=== PATIENT | female | born 1945 | race Caucasian/White ===

== ENCOUNTER 2017-07-12 08:38 | Inpatient (IN) | payer MEDICARE ==
--- NOTE | 2017-07-06 18:49 | HP ---
HISTORY AND PHYSICAL: DATE OF ADMISSION/SURGERY: 07/12/17 DATE OF OFFICE VISIT: 07/06/17 SURGEON: Vivienne Resendez MD * (DICTATED BY LISA RODRIGUEZ) PROCEDURE: Right total hip arthroplasty. CHIEF COMPLAINT: Right hip pain. HISTORY OF PRESENT ILLNESS: Ms. Pinedo is a 71-year-old female with complaints of right hip pain secondary to end-stage osteoarthritis. She has failed conservative management and has elected to proceed with a right total hip arthroplasty, which is scheduled for 07/12/[address] Resendez. PAST MEDICAL HISTORY: High cholesterol, depression, GERD, urinary incontinence , and melanoma. PAST SURGICAL HISTORY: Hysterectomy, laparoscopy. CURRENT MEDICATIONS: 1. Vitamin D. 2. Sertraline. ALLERGIES: To PENICILLIN. FAMILY HISTORY: Heart disease, hypertension, breast cancer. SOCIAL HISTORY: She is a 71-year-old female, lives with her . 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 She does not smoke or use drugs. Uses occasional alcohol. REVIEW OF SYSTEMS: A complete 14-point review of systems was reviewed with the patient, was positive for GERD. She denies a history of DVT, PE, anesthesia problems. PHYSICAL EXAMINATION GENERAL: She is well developed, well nourished, in no acute distress. VITAL SIGNS: She stands 5 feet 5 inches tall, weighs 160 pounds. Her blood pressure 124/68, heart rate is 72. HEENT: Normocephalic, atraumatic. NECK: Supple. No palpable lymph nodes. PULMONARY: Lungs are clear to auscultation bilaterally. CARDIO: Regular rate and rhythm. Strong S1, S2. ABDOMEN: Soft, nontender, nondistended. NEUROLOGICAL: She is alert and oriented x3. Cranial nerves II through XII are intact. MUSCULOSKELETAL: Right lower extremity, the skin is intact. There are no open wounds or abrasions. She has decreased internal and external rotation of her right hip. 2+ dorsalis pedis pulses. Her lower extremity muscle group strengths are intact at 5/5 and she has intact sensation. ASSESSMENT AND PLAN: Ms. Pinedo is a 71-year-old female with complaints of right hip pain secondary to end-stage osteoarthritis. She has failed conservative management and has elected to proceed with a right total hip arthroplasty, which is scheduled for 07/12/[address] Resendez has discussed the risks and benefits of surgery at today's visit, and all of her questions were answered. Coumadin, Percocet, and Colace were sent to her pharmacy for postoperative pain control and DVT prophylaxis. She will follow up with Dr. Resendez in 2 weeks after the surgery. LISA RODRIGUEZ [id number]/[facility] #: [id number] SILVANO
[~2017-07-12 08:38] MED LIST: Buffered Lidocaine 0.9% SYRIN* 5 ML/SYR SYRINGE INTRADERM ONE; Dexamethasone IV* 4 MG/ML 1 ML (4 MG) IV SLOW PU ONE; Famotidine IV* 10 MG/ML 2 ML (20 mg) IV ONE; Scopolamine 1.5 mg* PATCH TRANSDERM ONE
[2017-07-12] MEDS ORDERED: Dexamethasone IV* 4 MG/ML 1 ML (4 MG) ONE (08:49)
[2017-07-12] MEDS ORDERED: Famotidine IV* 10 MG/ML 2 ML (20 mg) ONE (08:49)
[2017-07-12] MEDS ORDERED: Buffered Lidocaine 0.9% SYRIN* 5 ML/SYR SYRINGE ONE (08:50)
[2017-07-12] MEDS ORDERED: Scopolamine 1.5 mg* PATCH ONE (08:50)
[2017-07-12] MEDS ORDERED: Clindamycin 900 MG IVPREMIX(* 900 MG/50 ML SDV IV ONE (08:50)
[2017-07-12] MEDS ORDERED: fentaNYL* 50 MCG/ML 2 ML VIAL (100 MCG VIAL) ONE (11:00)
[2017-07-12] MEDS ORDERED: Midazolam* 1 MG/ML 5 ML VIAL (5 MG) ONE (11:00)
[2017-07-12] MEDS ORDERED: Bupivacaine 0.5% SDV PF* 30 ML VIAL ONE (11:06)
[2017-07-12] MEDS ORDERED: Lidocaine 2% PF * 5 ML VIAL ONE (11:06)
[2017-07-12] MEDS ORDERED: Propofol* 10 MG/ML 20 ML BTL IV PUSH ONE ×2 (11:06→13:24)
[2017-07-12] MEDS ORDERED: fentaNYL* 50 MCG/ML 2 ML VIAL (100 MCG VIAL) IV PRN (12:24)
[2017-07-12] MEDS ORDERED: PROCHLORPERAZINE INJ 5 MG/ML 2 ML VIAL IV PRN ×2 (12:24→14:15)
[2017-07-12] MEDS ORDERED: oxyCODONE TAB* 5 MG TAB PO PRN ×3 (12:24→14:22)
[2017-07-12] MEDS ORDERED: Acetaminophen IV 1GM/100ML * 1,000 MG/100 ML VIAL IVPB ONE (12:24)
[2017-07-12] MEDS ORDERED: EPHEDrine (Pressors)* 50 MG/ML VIAL IV PUSH PRN (12:25)
[2017-07-12] MEDS ORDERED: Ondansetron INJ* 2 MG/ML VIAL IV PRN ×2 (12:25→14:15)
[2017-07-12] MEDS ORDERED: Naloxone* 0.4 MG/ML 1 ML VIAL IV PRN ×2 (12:25→14:15)
[2017-07-12] MEDS ORDERED: EPHEDrine (Pressors)* 50 MG/ML VIAL ONE (12:27)
[2017-07-12] MEDS ORDERED: Acetaminophen TAB* 325 MG PO SCH ×2 (13:00→15:00)
[2017-07-12] MEDS ORDERED: OBEPIDURAL* 250 ML EPIDURAL SCH (13:00)
--- NOTE | 2017-07-12 13:15 | RAD ---
INDICATION: Total right hip replacement surgery. COMPARISON: Comparison is made with a prior x-ray study of the right hip from June 24, 2017. TECHNIQUE: An AP view of the pelvis was obtained in the operating room. FINDINGS: The patient is undergoing a total right hip replacement surgery. The acetabular prostheses is in place. There is also femoral prostheses template in place. IMPRESSION: INTRAOPERATIVE CONTROL FILMS.
[2017-07-12] MEDS ORDERED: Morphine PF AMP (0.5MG/ML)* 5 MG/10 ML AMP ONE (13:59)
[2017-07-12] MEDS ORDERED: diPHENhydraMINE IV* 50 MG/ML 1 ml VIAL (BENADRYL) IV PRN (14:01)
[2017-07-12] MEDS ORDERED: Polyethylene Glycol 3350* 17 GM PACKET PO PRN (14:01)
[2017-07-12] MEDS ORDERED: Bisacodyl SUPP* 10 MG SUPP PR PRN (14:01)
[2017-07-12] MEDS ORDERED: Cetirizine* 10 MG TAB PO PRN (14:09)
[2017-07-12] MEDS ORDERED: Ondansetron INJ* 2 MG/ML VIAL ONE (14:14)
[2017-07-12] MEDS ORDERED: Acetaminophen IV 1GM/100ML * 100 ML ONE (14:21)
--- NOTE | 2017-07-12 15:13 | RAD ---
HISTORY: Status post right hip arthroplasty COMPARISONS: July 12, 2017 VIEWS: 3, Frontal view of the pelvis with frontal and crosstable lateral views of the right hip FINDINGS: BONE DENSITY: Normal. BONES: The patient is status post right hip arthroplasty. There is no hardware failure or osteolysis. JOINTS: The patient is status post right hip arthroplasty. There is osteoarthritis of the left hip. ALIGNMENT: There is no dislocation. SOFT TISSUES: Unremarkable. OTHER FINDINGS: None. IMPRESSION: STATUS POST RIGHT HIP ARTHROPLASTY
[2017-07-12] MEDS ORDERED: Warfarin TAB(*) 6 MG PO ONE (17:00)
[2017-07-12] MEDS: Acetaminophen TAB* 325 MG PO SCH (20:51)
[2017-07-12] MEDS: Docusate CAP* 100 MG PO SCH (20:51)
[2017-07-12] MEDS: Clindamycin 600 MG IVPREMIX(* 600 MG/50 ML SDV IV SCH (20:52)
[2017-07-12] MEDS ORDERED: Nalbuphine* 20 MG/ML 1 ML VIAL IV PRN (23:30)
[2017-07-12] MEDS ORDERED: Nalbuphine* 20 MG/ML 1 ML VIAL ONE (23:35)
[2017-07-13] MEDS: Clindamycin 600 MG IVPREMIX(* 600 MG/50 ML SDV IV SCH ×2 (03:22→12:09)
[2017-07-13 05:56] LABS: Hematocrit 30 % (35-47); Hemoglobin 10.3 g/dl (12.0-16.0)
[2017-07-13] MEDS ORDERED: Ondansetron TAB* 4 MG PO PRN (06:00)
[2017-07-13] MEDS ORDERED: HYDROmorphone INJ* 2 MG/ML CARPUJECT SYRINGE IV SLOW PU PRN (06:00)
[2017-07-13] MEDS ORDERED: oxyCODONE/Acetamin 5/325 MG* TAB PO PRN (06:00)
[2017-07-13] MEDS ORDERED: oxyCODONE TAB* 5 MG TAB PO PRN (06:00)
[2017-07-13] MEDS: Acetaminophen TAB* 325 MG PO SCH ×2 (06:05→12:14)
[2017-07-13 06:12] LABS: Potassium 4.6 mmol/L (3.5-5.0)
[2017-07-13 06:13] LABS: BUN/Creatinine Ratio 16.9 (8-20); Calcium 8.5 mg/dL (8.6-10.3); EGFR African American 87.2 (>60); EGFR Non-African American 67.8 (>60)
[2017-07-13] MEDS: Docusate CAP* 100 MG PO SCH ×2 (07:57→19:17)
[2017-07-13] MEDS: Sertraline* 50 MG TAB PO SCH (07:57)
--- NOTE | 2017-07-13 08:43 | OP ---
DATE OF OPERATION: 07/12/17 - ROOM #350 DATE OF : 45 ATTENDING SURGEON: Vivienne Resendez MD PASTER OPERATOR: LISA Chappell. Ms. Cordoba did help throughout the procedure with preparation of the leg wound, retraction, manipulation of the hip, and wound closure. ANESTHESIOLOGIST: Dr. Faby Murphy. ANESTHESIA TYPE: Spinal epidural. PRE-OP DIAGNOSIS: Severe end-stage degenerative osteoarthritis of the right hip joint. POST-OP DIAGNOSIS: Severe end-stage degenerative osteoarthritis of the right hip joint. OPERATIVE PROCEDURE: Right total hip arthroplasty. HARDWARE USED: This is uncemented Logan total hip arthroplasty hardware. For the cup, a Trident hemispherical acetabular shell 52E, 20-mm cancellous bone screw, an MDM cementless liner 42E. For the femur, an Accolade TMZF size 2.5 with a 132- degree neck angle. For the head, a Biolox delta ceramic V40 femoral head 28 -4. For the insert, a worship MDM 28/48/42E insert. COMPLICATIONS: None. ESTIMATED BLOOD LOSS: 300 cc. SPECIMENS: Femoral head and acetabular reaming sent to pathology. BRIEF HISTORY/INDICATION: Ms. Pinedo is a 71-year-old female with acute onset of right hip pain. She had some intermittent pain over the years, but in the last 3 months has had severe pain in the right hip. Radiographs confirmed advanced arthritis in that hip joint. She failed conservative treatment with anti- inflammatories, pain medications, physical therapy and activity modification. She elected to undergo right total hip arthroplasty due to continued pain and decreased quality of life. Informed consent was obtained from the patient. She understood the risks of the procedure included but were not limited to bleeding, infection, damage to nearby structures, continued pain , need for further surgery, intraoperative fracture, nerve palsy, hardware failure or loosening, dislocation, leg length discrepancy, stroke, heart attack , blood clot, and . She wished to proceed. INTRAOPERATIVE FINDINGS: Intraoperatively, the patient was noted to have full- thickness loss of cartilage along the femoral head and acetabulum. DESCRIPTION OF PROCEDURE: Ms. Pinedo was identified in the pre- anesthesia unit. Her right lower extremity was marked as the correct operative side. Informed consent was signed and placed in the chart. The patient was taken to the operating room and placed under spinal epidural anesthesia. Steiner catheter was placed.. The patient was placed in the left lateral decubitus position on the pegboard. All bony prominences were well padded. Right lower extremity was prepped and draped in the usual sterile fashion. Preop time-out was made to correctly identify the patient side and site. Appropriate perioperative antibiotics were given within 1 hour of incision. A 12-cm posterior hip incision was made with a #10 blade and carried down to the lateral fascial layer. A new 10 blade was used to make an incision in the lateral fascial layer in line with the skin incision. Charnley retractor was placed. The piriformis and conjoined tendons were identified and elevated off the posterolateral femur using electrocautery. These were tagged with #5 Ethibonds. Electrocautery was then used to make a standard posterolateral capsular flap which was also tagged with #5 Ethibonds. The hip was carefully dislocated. Lesser troch to the center of the femoral head measured 50 mm. Oscillating saw was used to make the appropriate femoral neck cut, and the femoral head was sent to pathology. The femur was carefully retracted anteriorly. After appropriate placement of retractors, the acetabulum was well visualized. A long-handled knife was used to sharply remove any remaining labrum from the acetabular rim. The pulvinar and any fibrous tissue was carefully removed from the cotyloid notch. The acetabulum was sequentially reamed up to a size 51. 51 reamer had good fit. There was bleeding subchondral bone bed. 51 trial had good fit as well as appropriate anteversion and abduction angle. Trident hemispherical multi-hole shell was chosen as the final implant, 52E. This was impacted into the acetabulum without difficulty. Appropriate anteversion and abduction angle were obtained. Excellent stability was obtained. A single 20-mm cancellous bone screw was placed in the superoposterior quadrant for added stability. An MDM liner 42E was chosen and impacted into the acetabulum. Stability of the liner was checked and rechecked, and noted to be stable. Next, attention was turned to preparation of the femoral canal. A canal finder was used to enter the proximal femur. Proximal femur was sequentially broached up to a size 2.5. 2.5 broach had good fit. A 132-degree neck trial was chosen as well as a 28 -4 femoral head. Lesser troch to center of the femoral head measured 50 mm. The appropriate MDM liner was placed. The hip was reduced and taken through a range of motion. The hip was stable in all positions. There was appropriate leg length and soft tissue tension. The hip was carefully dislocated. All trials were carefully removed. Final implant chosen was an Accolade TMZF size 2.5 with a 132-degree neck angle. This was impacted into the femoral canal without difficulty. The implant was stable with appropriate anteversion. A 28 -4 ceramic Biolox delta V40 femoral head was chosen as well as the appropriate MDM worship X3 insert 28/48/42E. This was prepared and impacted onto the femoral neck without difficulty. The hip was reduced and taken through a range of motion. The hip was stable in all positions. There was good soft tissue tension and leg length. The hip was copiously irrigated with sterile saline. Previously tagged capsule and tendons were reapproximated to the posterolateral femur through two trochanteric drill holes. The lateral fascial layer was closed using interrupted #1 Vicryls. The rest of the incision was closed in a layered fashion using 0 and 2-0 Vicryls. Skin was closed using running 3-0 Monocryl and Dermabond. Sterile Adaptic, 4 x 4s, and paper tape were placed over the incision. The patient's anesthesia was reversed without difficulty. She was taken to the PACU in stable condition. Intended weightbearing will be weightbearing as tolerated with posterior hip precautions. Intended DVT prophylaxis will be Coumadin with a Lovenox bridge. [id number]/[facility] #: [id number] SILVANO
--- NOTE | 2017-07-13 09:05 | PN ---
Progress Note - Progress Note Date of Service: 07/13/17 SOAP: Subjective: []Patient seen at bedside. Pain is well controlled, right hip described as tight. No chest pain, shortness of breath, dizziness, nausea or leg numbness. Objective: [] Vital Signs Temp 97.9 F 07/13/17 11:30 Pulse 56 07/13/17 11:30 Resp 18 07/13/17 12:13 BP 114/56 07/13/17 11:30 Pulse Ox 97 07/13/17 11:30 Intake & Output 07/12/17 07/13/17 07/13/17 18:59 06:59 18:59 Intake Total 0 2141 Output Total 200 600 0 Balance 1890 1541 0 Weight 160 lb Intake: IV Fluids 1999 986 LR 1999 986 IVPB 55 Clindamycin 55 Oral 90 1100 Output: Steiner 200 600 0 Other: # Bowel Movements 0 Laboratory Last Values Hgb 10.3 g/dl (12.0-16.0) L 07/13/17 05:46 Hct 30 % (35-47) L 07/13/17 05:46 INR (Anticoag Therapy) 1.00 (0.89-1.11) 07/13/17 05:46 Sodium 130 mmol/L (133-145) L 07/13/17 05:46 Potassium 4.6 mmol/L (3.5-5.0) 07/13/17 05:46 Chloride 102 mmol/L (101-111) 07/13/17 05:46 Carbon Dioxide 24 mmol/L (22-32) 07/13/17 05:46 Anion Gap 4 mmol/L (2-11) 07/13/17 05:46 BUN 14 mg/dL (6-24) 07/13/17 05:46 Creatinine 0.83 mg/dL (0.51-0.95) 07/13/17 05:46 Est GFR ( Amer) 87.2 (>60) 07/13/17 05:46 Est GFR (Non-Af Amer) 67.8 (>60) 07/13/17 05:46 BUN/Creatinine Ratio 16.9 (8-20) 07/13/17 05:46 Glucose 121 mg/dL (70-100) H 07/13/17 05:46 Calcium 8.5 mg/dL (8.6-10.3) L 07/13/17 05:46 General: OOB in chair, well appearing. RLE: Dressing clean, dry, intact without surrounding erythema Bilateral lower extremities: calves supple and nontender without erythema, edema or palpable cords. Negative Efren's sign. DP/PT pulses 2+ and symmetric. Brisk capillary refill distally. DF/PF intact. Sensation intact distally. Assessment: []POD 1 s/p right total hip arthroplasty, Dr. Resendez Plan: []WBAT PT/OT Lovenox, Coumadin 6 mg Continue pain control - oxycodone, percocet
[2017-07-13] MEDS: oxyCODONE/Acetamin 5/325 MG* TAB PO PRN ×4 (10:18→23:11)
[2017-07-13] MEDS ORDERED: Acetaminophen TAB* 325 MG PO PRN (14:01)
[2017-07-13] MEDS: Enoxaparin(*) 30 MG/0.3 ML SYR SUBCUT SCH (14:16)
[2017-07-13] MEDS ORDERED: Warfarin TAB(*) 6 MG PO SCH (17:00)
[2017-07-13] MEDS: Magnesium Hydroxide LIQ* 30 ML UDC PO PRN (19:18)
[2017-07-14] MEDS: Ondansetron INJ* 2 MG/ML VIAL IV PRN ×2 (04:28→10:14)
[2017-07-14] MEDS: oxyCODONE/Acetamin 5/325 MG* TAB PO PRN ×5 (04:42→21:26)
[2017-07-14 05:33] LABS: Hematocrit 29 % (35-47); Hemoglobin 9.9 g/dl (12.0-16.0); Mean Platelet Volume 8 um3 (7.4-10.4)
--- NOTE | 2017-07-14 07:26 | PN ---
Progress Note - Progress Note Date of Service: 07/14/17 SOAP: Subjective: resting comfortably in bed with minimal complaints of pain Objective: Vital Signs Temp Pulse Resp BP Pulse Ox 99.6 F 61 16 96/54 96 07/14/17 04:09 07/14/17 04:24 07/14/17 04:42 07/14/17 04:24 07/14/17 04:24 Laboratory Last Values Hgb 9.9 g/dl (12.0-16.0) L 07/14/17 05:19 Hct 29 % (35-47) L 07/14/17 05:19 Plt Count 229 10^3/ul (150-450) 07/14/17 05:19 MPV 8 um3 (7.4-10.4) 07/14/17 05:19 INR (Anticoag Therapy) 1.06 (0.89-1.11) 07/14/17 05:15 Sodium 130 mmol/L (133-145) L 07/13/17 05:46 Potassium 4.6 mmol/L (3.5-5.0) 07/13/17 05:46 Chloride 102 mmol/L (101-111) 07/13/17 05:46 Carbon Dioxide 24 mmol/L (22-32) 07/13/17 05:46 Anion Gap 4 mmol/L (2-11) 07/13/17 05:46 BUN 14 mg/dL (6-24) 07/13/17 05:46 Creatinine 0.83 mg/dL (0.51-0.95) 07/13/17 05:46 Est GFR ( Amer) 87.2 (>60) 07/13/17 05:46 Est GFR (Non-Af Amer) 67.8 (>60) 07/13/17 05:46 BUN/Creatinine Ratio 16.9 (8-20) 07/13/17 05:46 Glucose 121 mg/dL (70-100) H 07/13/17 05:46 Calcium 8.5 mg/dL (8.6-10.3) L 07/13/17 05:46 incision: c/d; dressing changed PE:NVI Assessment: s/p right TAHIR; POD #2 Plan: 1) PT/OT-WBAT 2) lovenox/coumadin for DVT prophylaxis; 8mg coumadin ordered for tonight 3) Possible home this afternoon after PT
[2017-07-14] MEDS: Sertraline* 50 MG TAB PO SCH (09:04)
[2017-07-14] MEDS: Docusate CAP* 100 MG PO SCH ×2 (09:04→20:15)
[2017-07-14] MEDS: Enoxaparin(*) 30 MG/0.3 ML SYR SUBCUT SCH (14:55)
[2017-07-14] MEDS ORDERED: Warfarin TAB(*) 4 MG PO ONE (17:00)
[2017-07-14] MEDS: Magnesium Hydroxide LIQ* 30 ML UDC PO PRN (20:15)
[2017-07-15] MEDS: oxyCODONE/Acetamin 5/325 MG* TAB PO PRN ×2 (04:13→08:34)
[2017-07-15 05:40] LABS: Hematocrit 27 % (35-47); Hemoglobin 9.4 g/dl (12.0-16.0)
[2017-07-15] MEDS ORDERED: Scopolamine PATCH Remove* 1 NOTE MISC PATCH OFF ONE (06:00)
[2017-07-15 07:28] VITALS: BP 118/48
[2017-07-15] MEDS: Sertraline* 50 MG TAB PO SCH (08:34)
[2017-07-15] MEDS: Docusate CAP* 100 MG PO SCH (08:34)
--- NOTE | 2017-07-15 09:21 | PN ---
Progress Note - Progress Note Date of Service: 07/15/17 SOAP: Subjective: 71 y/o female s/p R TAHIR by DR. Resendez 07/12/2017. Patient reports feeling well , a few episodes of nausea controlled with taking pain medication with food. Doing well with PT, VSS, afebrile. Objective: GEneral- Well appearing, NAD resting in bed comfortably, NAD MSK- dressing removed, incision d/c/i, minimal drainage noted, + mild ecchymosis around incision site, + DF/PF b/l, neg homans, sensation intact b/l Vital Signs Temp 97.8 F 07/15/17 07:23 Pulse 77 07/15/17 07:23 Resp 18 07/15/17 08:34 BP 118/48 07/15/17 07:23 Pulse Ox 98 07/15/17 07:23 Intake & Output 07/14/17 07/15/17 07/15/17 18:59 06:59 18:59 Intake Total 710 920 320 Output Total 900 1500 Balance -190 -580 320 Intake: Oral 710 920 320 Output: Urine 900 1500 Other: Estimated Void Medium # Bowel Movements 0 1 Estimated Stool Amount Small # Voids 1 Assessment: Stable 71 y/o female s/p R TAHIR by DR. Resendez 07/12/2017. Plan: - DVT prophylaxis- Lovenox today, INR subtherap- 1.14. Continue coumadin - Continue PT - Continue current pain regimen, home with zofran for nausea - Follow up with dr Resendez 07/25 Active Medications Generic Name Dose Route Start Last Admin Trade Name Otisq PRN Reason Stop Dose Admin Acetaminophen 650 mg 07/13/17 14:01 Tylenol Tab* PO Q4H PRN PAIN OR TEMPERATURE Bisacodyl 10 mg 07/12/17 14:01 07/14/17 17:20 Dulcolax Supp* MI 10 mg DAILY PRN Administration constipation Cetirizine HCl 10 mg 07/12/17 14:09 07/15/17 08:34 Zyrtec* PO 10 mg DAILY PRN Administration CONGESTION Protocol Diphenhydramine HCl 12.5 mg 07/12/17 14:01 Benadryl Iv* IV Q6H PRN PRURITIS Docusate Sodium 100 mg 07/12/17 21:00 07/15/17 08:34 Colace Cap* PO 100 mg BID SAMMY Administration Enoxaparin Sodium 30 mg 07/13/17 15:00 07/14/17 14:55 Lovenox(*) SUBCUT 30 mg Q24H SAMMY Administration Hydromorphone HCl 2 mg 07/13/17 06:00 Dilaudid Inj* IV SLOW PU Q4H PRN PAIN Lactulose 30 ml 07/12/17 14:01 07/14/17 09:04 Lactulose* PO 30 ml Q6H PRN Administration constipation Magnesium Hydroxide 30 ml 07/12/17 14:01 07/14/17 20:15 Milk Of Magnesia Liq* PO 30 ml Q6H PRN Administration constipation Nalbuphine HCl 5 mg 07/12/17 23:30 Nubain* IV Q6H PRN ITCHING Ondansetron HCl 4 mg 07/13/17 06:00 07/14/17 10:14 Zofran Inj* IV 4 mg Q6H PRN Administration nausea Ondansetron HCl 4 mg 07/13/17 06:00 Zofran Tab* PO Q6H PRN NAUSEA Oxycodone HCl 10 mg 07/13/17 06:00 07/13/17 06:06 Roxycodone Tab* PO 10 mg Q4H PRN Administration SEVERE PAIN Oxycodone/Acetaminophen 1 tab 07/13/17 06:00 Percocet 5/325 Tab* PO Q4H PRN PAIN Oxycodone/Acetaminophen 2 tab 07/13/17 06:00 07/15/17 08:34 Percocet 5/325 Tab* PO 2 tab Q4H PRN Administration PAIN Pharmacy Profile Note 0 note 07/12/17 17:00 07/14/17 17:37 Coumadin Daily Reminder* FOLLOW UP 1 note 1700 SAMMY Administration Polyethylene Glycol/Electrolytes 17 gm 07/12/17 14:01 Miralax* PO DAILY PRN Constipation Sertraline HCl 100 mg 07/13/17 09:00 07/15/17 08:34 Zoloft* PO 100 mg DAILY SAMMY Administration
--- NOTE | 2017-07-16 09:18 | DS ---
DISCHARGE SUMMARY: DATE OF ADMISSION: 07/12/17 DATE OF DISCHARGE: 07/15/17 ATTENDING PHYSICIAN: Vivienne Resendez MD * (DICTATED BY LISA MEZA) CHIEF COMPLAINT: 1. Right hip pain. 2. Elevated cholesterol. 3. Depression. 4. GERD. 5. History of urinary incontinence. 6. History of melanoma. DISCHARGE DIAGNOSES: 1. Right total hip arthroplasty. 2. Elevated cholesterol. 3. Depression. 4. Gastroesophageal reflux disease. 5. History of urinary incontinence. 6. History of melanoma. PROCEDURE: Right total hip arthroplasty. CONSULTATIONS: 1. Physical therapy. 2. Occupational therapy. BRIEF HISTORY: Ms. Pinedo is a very pleasant 71-year-old female with severe endstage degenerative osteo-arthritis of the right hip who failed conservative treatment and elected to undergo right total hip arthroplasty on by Dr. Vivienne Resendez. HOSPITAL COURSE: Ms. Pinedo was admitted to [facility] on where she underwent an uncomplicated right total hip arthroplasty without difficulty. Postoperatively, she recovered in the surgical short stay unit. On postoperative day 2, her Steiner was removed and she was voiding on her own without difficulty. She advanced to a regular diet and her pain was controlled with p.o. Percocet. She was restarted on her home medications. Her labs and vital signs remained stable. She was able to weight bear as tolerated in the right lower extremities. She has appropriate physical therapy and occupational therapy. Her DVT prophylaxis was managed with Lovenox and Coumadin. By postoperative day 3, she was orthopedically and medically stable for discharge to go home with home services. PHYSICAL EXAMINATION: General: Well-appearing, no acute distress, alert and oriented, resting in bed comfortably. Vital Signs: Temperature 97.6, pulse 77 , respirations 18, blood pressure 118/48, pulse oxygenation 99% on room air. Dressing was removed from the right hip. The incision was cleaned, dry, and intact with minimal drainage noted. Minimal ecchymosis around the incision site. Positive dorsiflexion and plantarflexion of bilateral lower extremities with a negative Mark's sign bilaterally. Sensation is intact bilaterally to touch. New dressing was placed. LABORATORY DATA: On the date of discharge, H and H at 9.4 and 27 with an INR of 1.14. RADIOGRAPHS: Postoperative films of the right hip demonstrate a right hip arthroplasty and good positioning. DISCHARGE MEDICATIONS: 1. Acetaminophen 325 mg 1 to 2 tablets every 6 hours as needed for pain p.r.n. , not to exceed 4000 mg of acetaminophen daily. 2. Three allergy drops sublingually daily. 3. Zyrtec 10 mg p.o. daily. 4. Vitamin D3 Supper Strength 2000 international units p.o. daily. 5. Colace 100 mg p.o. b.i.d. 6. Zofran 4 mg tablet every 8 hours as needed for nausea/vomiting. 7. Percocet 5/325 one to two tablets every 4 hours as needed. 8. Zoloft 100 mg p.o. daily. 9. Coumadin 2 mg 3 tablets p.o. daily at 5 p.m. per physician's instructions. CONDITION ON DISCHARGE: Stable. DISCHARGE INSTRUCTIONS: Ms. Pinedo is a very pleasant 71-year-old female , postoperative day 3, status post right total hip arthroplasty which was uncomplicated. She is orthopedically and medically stable for discharge to go home with home services. Her labs and vital signs are stable. She was started on her medications. She will take 4 mg Coumadin tonight, 6 mg on 07/16/17 and 4 mg on 07/17/17 with an INR check on 07/18/17. She will take Percocet as needed for pain control. Colace up to 3 times a day for constipation. She will follow up with Dr. Resendez in to 10 to 14 days for incision check. She was instructed to go immediately to the ER should she develop chest pain or shortness of breath. Should she develop fever, increasing pain or redness, she is to call the office immediately. LISA MEZA [id number]/[facility] #: [id number] SILVANO
== END 2017-07-15 11:10 | disposition home health service (06) | DRG 470 ==
LOC: AA 08:38 → SSU 16:14
PROVIDERS: ADMIT Orthopaedic Surgery Adult Reconstructive Orthopaedic Surgery; ATTEND Orthopaedic Surgery Adult Reconstructive Orthopaedic Surgery
PROC: 0SR903A Replacement of Right Hip Joint with Ceramic Synthetic Substitute, Uncemented, Open Approach (ICD-10-PCS; principal; 2017-07-12 11:00)
DX: M16.11 Unilateral primary osteoarthritis, right hip (principal); E78.00 Pure hypercholesterolemia, unspecified; F32.9 Major depressive disorder, single episode, unspecified; R11.0 Nausea; K21.9 Gastro-esophageal reflux disease without esophagitis; Z85.820 Personal history of malignant melanoma of skin; Z79.01 Long term (current) use of anticoagulants; Z90.710 Acquired absence of both cervix and uterus; Z88.0 Allergy status to penicillin; Z82.49 Family history of ischemic heart disease and other diseases of the circulatory system; Z80.3 Family history of malignant neoplasm of breast; Z72.89 Other problems related to lifestyle
CPT/HCPCS: 36415; 80048; 85014; 85018; 85049; 85610; A9270-GY; C1713; C1776; J1100; J1650; J2250; J2300; J2405; J2704; J3010

== ENCOUNTER 2018-01-03 12:00 | Inpatient (IN) | payer MEDICARE ==
--- NOTE | 2017-12-21 14:06 | HP ---
Amended report to enter cosigning physician. HISTORY AND PHYSICAL: DATE OF SURGERY: 01/03/18 DATE OF OFFICE VISIT: 12/21/17 SURGEON: Vivienne Resendez MD* (dictated by LISA Rodriguez). PROCEDURE: Left total hip arthroplasty. CHIEF COMPLAINT: Left hip pain. HISTORY OF PRESENT ILLNESS: Ms. Pinedo is a 72-year-old female with continued complaints of left hip pain secondary to advanced osteoarthritis. She has failed conservative management and elected to proceed with a left total hip arthroplasty, which is scheduled for 01/03/[address] Resendez. PAST MEDICAL HISTORY: 1. High cholesterol. 2. Depression. 3. History of melanoma. PAST SURGICAL HISTORY: 1. Hysterectomy. 2. Right total hip arthroplasty. CURRENT MEDICATIONS: 1. Sertraline. 2. Vitamin D. ALLERGIES: PENICILLIN. FAMILY HISTORY: Breast cancer, coronary artery disease and hypertension. SOCIAL HISTORY: She is a 72-year-old female, lives with her . She does not smoke or use drugs. She uses alcohol occasionally. REVIEW OF SYSTEMS: A complete 14-point review of systems is reviewed with the patient, was negative for history of a DVT, PE, hepatitis, HIV or MRSA infection. PHYSICAL EXAMINATION GENERAL: She is well developed, well nourished, in no acute distress. VITAL SIGNS: She stands 5 feet 5 inches tall, weighs 162 pounds. Her blood pressure is 105/65, her heart rate is 65. HEENT: Normocephalic, atraumatic. NECK: Supple. No palpable lymph nodes. PULMONARY: The lungs are clear to auscultation bilaterally. CARDIO: Regular rate and rhythm. Strong S1, S2. ABDOMEN: Soft, nontender, nondistended. NEUROLOGICAL: She is alert and oriented x3. Cranial nerves II through XII are intact. MUSCULOSKELETAL: Left lower extremity, the skin is intact. There is no open wounds or abrasions. She walks with antalgic type gait favoring her left hip. She has 2+ dorsalis pedis pulses. Intact sensation. Her lower extremity muscle group strengths are intact at 5/5. She has decreased internal and external rotation of her left hip. ASSESSMENT AND PLAN: Ms. Pinedo is a 72-year-old female with complaints of left hip pain secondary to advanced osteoarthritis. She has failed conservative management and elected to proceed with the left total hip arthroplasty, which is scheduled for 01/03/[address] Resendez discussed the risks and the benefits of the surgery on today's visit, and all of her questions were answered. She will follow up with Dr. Resendez in 2 weeks after the surgery. LISA RODRIGUEZ [id number]/[facility] #: [id number] S[place]
[~2018-01-03 12:00] MED LIST changes: -Dexamethasone IV* 4 MG/ML 1 ML (4 MG) IV SLOW PU ONE; +DiMENhydriNATE IV* 50 MG/ML VIAL IV PUSH PRN; -Famotidine IV* 10 MG/ML 2 ML (20 mg) IV ONE; +Famotidine TAB* 20 MG PO ONE; +Gabapentin CAP(*) 300 MG PO ONE; +HYDROmorphone INJ* 1 MG/ML CARPUJECT SYRINGE IV PRN; +Naloxone* 0.4 MG/ML 1 ML VIAL IV PRN; +Ondansetron INJ* 2 MG/ML VIAL ONE; +Ondansetron ODT TAB* 4 MG PO ONE; +PROCHLORPERAZINE INJ 5 MG/ML 2 ML VIAL IV PRN; -Scopolamine 1.5 mg* PATCH TRANSDERM ONE; +Scopolamine 1.5 mg* PATCH TRANSDERM PRN; +oxyCODONE/Acetamin 5/325 MG* TAB PO PRN
[2018-01-03] MEDS ORDERED: Midazolam* 1 MG/ML 5 ML VIAL (5 MG) ONE (13:24)
[2018-01-03] MEDS ORDERED: fentaNYL* 50 MCG/ML 2 ML VIAL (100 MCG VIAL) ONE ×2 (13:24→18:22)
--- OUTSIDE RECORDS SUMMARY | 2018-01-03 13:35 | XMS REPORT ---
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 Payers Type Date Identification Numbers Payment Provider Subscriber Commercial Expires: Policy Number: CPHL Aetna Rajesh Lowe Khris 2016 [id number] [place] PayID: [id number] [address] [place] [phone] Commercial Effective: Policy Number: Aetna-PFFS [place] 2016 [id number] Medicare Plan Franmireyazeb PayID: [id number] [address] [place] [address] Problems Date Description Provider Status Onset: 10/16/2015 Vitamin D deficiency Kaylee Montano MD Active Onset: 01/20/2016 Impaired fasting glycaemia Kaylee Montano MD Active Onset: 11/09/2016 Moderate recurrent major depression Kaylee Montano MD Active Onset: 2017 Atrophic vaginitis Kaylee Montano MD Active Onset: 12/13/2017 Pure hypercholesterolemia Kaylee Montano MD Active Onset: 05/08/2015 Depressive disorder Kaylee Montano MD Inactive Inactive: 11/09/2016 Onset: 05/08/2015 Mixed hyperlipidemia Kaylee Montano MD Inactive Inactive: 12/13/2017 Onset: 05/08/2015 Vitamin D deficiency Kaylee Montano MD Inactive Inactive: 12/13/2017 Family History Date Family Member(s) Problem(s) Comments General Depression "Most of family members" Father White Father due to Congestive Heart () - Age 65 Failure years Father Alcoholism : (age Father due to Congestive Heart 55 Years) Failure Father Hypertension Father Hypercholesterolemia Onset: (age 87 Mother Breast Cancer Years) : (age Mother due to Natural Causes Hip fracture after 89 Years) fall and after 1 week. 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 [employer] ETOH Use Currently consumes alcohol 1 glass of wine / day Smoking 39 Years Patient is a former smoker 1PPD for 20 years Recreational Drug Use Never Used Drugs Daily Caffeine Consumes on average 2 cups of coffee per day Daily Caffeine Consumes on average 1 cup of tea per day Daily Caffeine consumes chocolate frequently Enjoy Exercising Enjoys exercising Exercise Type/Frequency Exercises regularly 30-60 minutes of daily walk, 30 minutes of cardio 3-5 days / week, 1 hour of weight lifting 2 / wk, when possible 1 hour of rowing 3-4 / week Guns in Home No Currently Active Patient is currently sexually active Allergies, Adverse Reactions, Alerts Date Description Reaction Status Severity Comments 01/13/2015 Penicillin Urticaria active Moderate "Bumps on skin" Medications Medication Date Status Form Strength Qnty SIG Indications Ordering Provider Premarin 12/07 Active Cream 0.625mg/G 42.50 use 08/30 N95.2 M 0gm applicator A Watalanis, intervaginally twice a week at bedtime Sertraline HCL 01/20 Active Tablets 100mg 30tab take 1 tablet F33.1 s by mouth daily A Wattoo, for anxiety and MD depression Vitamin D3 10/25 Active Capsules 2000Unit 1 by mouth E55.9 2015 every day A MD Charmaine Ciprofloxacin 12/13 Hx Tablets 250mg 20tab take 1 tablet N39.0 Page HCL s by mouth 2 A Watalanis, - times per day 12/23 for infection /2017 of urinary tract Trimethoprim 09/21 Hx Tablets 100mg 20tab 1 take by mouth R35.0 Page s tablet every 12 A Charmaine, - hours for 12/05 urinary tract /2018 infection N39.0 Meloxicam 05/11/2017 - Hx Tablets 15mg 30tabs 1 by mouth M25.551 Page A 06/09/2017 every day MD Charmaine Nitrofurantoin 03/28/2017 - Hx Capsules 100mg 10caps take 1 N39.0 Page A Monohyd Macro 04/02/2017 capsule by MD Charmaine mouth every 12 hours for 5 days with food for urinary tract infection Viibryd 11/09/2016 - Hx Tablets 20mg 1/2 a day for F33.1 Page A 11/23/2016 2 weeks and MD Charmaine discontinue Sertraline HCL 11/09/2016 - Hx Tablets 50mg 30tabs 1 by mouth F33.1 Page A 01/20/2017 every day MD Charmaine Trimethoprim 01/05/2016 - Hx Tablets 100mg 10tabs take 1 tablet N39.0 Page A 01/10/2016 by mouth MD Charmaine every 12 hours for 5 days for urinary infection Viibryd 10/28/2015 - Hx Tablets 20mg Take 1 tablet F33.1 Unknown 11/09/2016 by mouth daily with food for major depressive disorder Omeprazole 10/24/2015 - Hx Tablets DR 20mg Take 1 tablet K21.9 Page A 11/03/2015 by mouth MD Charmaine daily for 10 days R05 Meclizine HCL 10/16/2015 - Hx Tablets 25mg 20tabs 1 by mouth H81.10 Page A 10/27/2015 every 6 hours MD Charmaine as needed Vitamin D-3 02/06/2015 - Hx Tablets 5000Uni 1 by mouth E55.9 Page A 10/25/2015 t every day MD Charmaine Melatonin 02/05/2015 - Hx Capsules 3mg otc 3mg 780.52 Sean D 05/08/2015 orally at [facility], night as GRADUATE STUDENT-C needed for insomnia. take 1 hour prior to bedtime. Wellbutrin XL 02/05/2015 - Hx Tablets ER 300mg 1 by mouth F32.9 Unknown 10/28/2015 24HR every day every morning Wellbutrin SR 08/29/2013 - Hx Tablets ER 200mg Take 1 tablet 311 Unknown 02/05/2015 12HR by mouth daily for depression Vitamin D3 08/29/2013 - Hx Capsules 2000Uni 1 by mouth Unknown 02/06/2015 t every day Immunizations CPT Code Status Date Vaccine Lot # [id number] Given 05/11/2017 Influenza Vaccine Not Specified Administered Age 3 And Older [id number] Given 05/11/2017 Influenza Virus Vaccine Split Virus [id number] Use For Individual 3Yr Older 92429 Given 05/28/2015 Tdap-Tetanus, Diphtheria TDap [id number] Toxoids/Acellular Pertussis Vaccine 7+ [id number] Given 05/08/2015 Pneumococcal Vaccine 2Yrs Or Older Pneumococcal [id number] 16844 Given 05/08/2015 Influenza Virus Split 3 Yrs And Above [id number] For Intramuscular Use 90722 Given 05/29/2014 Influenza Virus Split 3 Yrs And Above For Intramuscular Use Vital Signs Date Vital Result Comment 12/23/2017 Body Temperature 98.4 F 12/13/2017 Body Temperature 98.7 F Heart Rate 54 /min BP Systolic 130 mmHg BP Diastolic 75 mmHg BMI (Body Mass Index) 27.8 kg/m2 Weight 166.00 lb Height 64.75 inches 5'4.75" 11/30/2017 Body Temperature 98.0 F 09/21/2017 Body Temperature 97.7 F 06/28/2017 Heart Rate 50 /min BP Systolic 115 mmHg BP Diastolic 70 mmHg 06/16/2017 Body Temperature 97.4 F Heart Rate 66 /min BP Systolic 110 mmHg BP Diastolic 70 mmHg 06/09/2017 Heart Rate 70 /min BP Systolic 110 mmHg BP Diastolic 70 mmHg 05/04/2017 Heart Rate 68 /min BP Systolic 125 mmHg BP Diastolic 80 mmHg Weight 165.00 lb 03/28/2017 Body Temperature 98.3 F 01/20/2017 Body Temperature 98.0 F BMI (Body Mass Index) 27.3 kg/m2 Weight 163.00 lb Height 64.75 inches 5'4.75" 01/20/2016 O2 % BldC Oximetry 98 % Heart Rate 60 /min BP Systolic 120 mmHg BP Diastolic 70 mmHg BMI (Body Mass Index) 26.4 kg/m2 Weight 156.00 lb Height 64.5 inches 5'4.50" 01/05/2016 Body Temperature 98.4 F 10/24/2015 Body Temperature 98.1 F 10/16/2015 Body Temperature 98.6 F Heart Rate 76 /min BP Systolic 115 mmHg BP Diastolic 70 mmHg 05/08/2015 Weight 153.00 lb 02/05/2015 Body Temperature 98.4 F O2 % BldC Oximetry 98 % Heart Rate 72 /min BP Systolic 126 mmHg BP Diastolic 68 mmHg BMI (Body Mass Index) 25.1 kg/m2 Weight 151.00 lb Height 65 inches 5'5" 01/13/2015 Body Temperature 98.3 F O2 % BldC Oximetry 97 % Heart Rate 57 /min BP Systolic 120 mmHg BP Diastolic 70 mmHg BMI (Body Mass Index) 25.0 kg/m2 Weight 150.00 lb Height 65 inches 5'5" Results Test Date Test Result H/L Range Note Urinalysis Profile 12/22/2017 Urine Color Yellow Urine Appearance Clear Urine Specific [place] 1.020 1.010-1.030 Urine pH 5.0 5-9 Urine Urobilinogen Negative Negative Urine Ketones Trace Negative Urine Protein Negative Negative Urine Leukocytes Trace Negative Urine Blood Negative Negative * * Negative 1 Urine Nitrite Negative Negative Urine Bilirubin Negative Negative Urine Glucose Negative Negative Urine White Blood Cell Trace(0-5/hpf) Absent Urine Red Blood Cell Absent Absent Urine Bacteria Absent Absent Urine Squamous Epithelial Cell Present Absent Urine Calcium Oxalate Cryst Present Absent Inr/Protime 12/21/2017 Inr 0.88 0.77-1.02 2 Laboratory test finding 12/21/2017 Partial Thrombo Time 28.4 seconds 26.0 -36.3 2, 3 PTT Type & Screen 12/21/2017 Patient Blood Type A Positive 2 Antibody Screen NEGATIVE 2 Order 12/13/2017 EKG Normal Laboratory test finding 12/12/2017 Urine Culture And SEE RESULT BELOW 4 Sensitivities Urinalysis Profile 12/12/2017 Urine Color [place] Urine Appearance Turbid Urine Specific [place] 1.016 1.010-1.030 Urine pH 5.0 5-9 Urine Urobilinogen Negative Negative Urine Ketones Negative Negative Urine Protein Negative Negative Urine Leukocytes 3+ Negative Urine Blood 1+ Negative Urine Nitrite Negative Negative Urine Bilirubin Negative Negative Urine Glucose Negative Negative Urine White Blood Cell 3+(>20/hpf) Absent Urine Red Blood Cell 1+(3-5/hpf) Absent Urine Bacteria Absent Absent Urine Squamous Epithelial Cell Present Absent Urine Renal Epithelial Cells Present Absent * * Negative 5 Urinalysis Profile 12/10/2017 Urine Color Yellow Urine Appearance Clear Urine Specific [place] 1.012 1.010-1.030 Urine pH 6.0 5-9 Urine Urobilinogen Negative Negative Urine Ketones Negative Negative Urine Protein Negative Negative Urine Leukocytes 2+ Negative Urine Blood Negative Negative Urine Nitrite Negative Negative Urine Bilirubin Negative Negative Urine Glucose Negative Negative Urine White Blood Cell 3+(>20/hpf) Absent Urine Red Blood Cell 1+(3-5/hpf) Absent Urine Bacteria 1+ Absent Laboratory test 12/10/2017 Urine Culture And SEE RESULT BELOW 6 finding Sensitivities CBC No Diff 12/10/2017 White Blood Count 6.7 10^3/uL 3.5-10.8 Red Blood Count 4.72 10^6/uL 4.0-5.4 Hemoglobin 14.5 g/dL 12.0-16.0 Hematocrit 42 % 35-47 Mean Corpuscular Volume 89 fL 80-97 Mean Corpuscular Hemoglobin 31 pg 27-31 Mean Corpuscular HGB Conc 34 g/dL 31-36 Red Cell Distribution Width 14 % 10.5-15 Platelet Count 324 10^3/uL 150-450 Mean Platelet Volume 8.0 um3 7.4-10.4 Comp Metabolic Panel 12/10/2017 Sodium 136 mmol/L Low 139-145 Potassium 4.7 mmol/L 3.5-5.0 Chloride 105 mmol/L 101-111 Co2 Carbon Dioxide 23 mmol/L 22-32 Anion Gap 8 mmol/L 2-11 Glucose 108 mg/dL High 70-100 Blood Urea Nitrogen 18 mg/dL 6-24 Creatinine 0.71 mg/dL 0.51-0.95 BUN/Creatinine Ratio 25.4 High 8-20 Calcium 9.2 mg/dL 8.6-10.3 Total Protein 6.8 g/dL 6.4-8.9 Albumin 4.2 g/dL 3.2-5.2 Globulin 2.6 g/dL 2-4 Albumin/Globulin Ratio 1.6 1-3 Total Bilirubin 0.40 mg/dL 0.2-1.0 Alkaline Phosphatase 79 U/L 34-104 Alt 9 U/L 7-52 Ast 15 U/L 13-39 Egfr Non- 80.9 >60 Egfr 104.1 >60 7 Lipid Profile (Trig/Chol/HDL) 12/10/2017 Triglycerides 87 mg/dL <150 8 Cholesterol 249 mg/dL High <200 9 HDL Cholesterol 77.1 mg/dL >40 10 LDL Cholesterol 155 mg/dL High <130 11 Laboratory test finding 12/10/2017 Hemoglobin A1c (Glyco HGB) 6.0 % High 4.0-5.6 12 Ua Routine 11/30/2017 Ua Specific [place] 1.010 Ua PH 6.5 Ua Color Yellow Ua Appera Clear Ua WBC + Ua Protein - Ua Glucose - Ua Ketones - Ua Bilirubin - Ua Urobilinogen - Ua Nitrite - Ua Occult Blood - Laboratory test finding 11/30/2017 Urine Culture And SEE RESULT BELOW 13 Sensitivities Xray 10/14/2017 Mammography, Screening, Normal Bilateral Xray 10/06/2017 Urinary Bladder Residual 14ml post voidal Ua Routine 09/21/2017 Ua Specific [place] 1.025 Ua PH 5 Ua Color Dark yellow Ua Appera Clear Ua WBC + Ua Protein - Ua Glucose - Ua Ketones - Ua Bilirubin - Ua Urobilinogen - Ua Nitrite - Ua Occult Blood - Laboratory test 09/21/2017 Urine Culture And SEE RESULT BELOW 14 finding Sensitivities Order 06/28/2017 EKG Normal CBC Auto Diff 06/16/2017 White Blood Count 8.4 10^3/uL 3.5-10.8 Red Blood Count 4.47 10^6/uL 4.0-5.4 Hemoglobin 14.0 g/dL 12.0-16.0 Hematocrit 41 % 35-47 Mean Corpuscular Volume 91 fL 80-97 Mean Corpuscular Hemoglobin 31 pg 27-31 Mean Corpuscular HGB Conc 34 g/dL 31-36 Red Cell Distribution Width 13 % 10.5-15 Platelet Count 350 10^3/uL 150-450 Mean Platelet Volume 8 um3 7.4-10.4 Abs Neutrophils 4.2 10^3/uL 1.5-7.7 Abs Lymphocytes 3.3 10^3/uL 1.0-4.8 Abs Monocytes 0.7 10^3/uL 0-0.8 Abs Eosinophils 0.2 10^3/uL 0-0.6 Abs Basophils 0.1 10^3/uL 0-0.2 Abs Nucleated RBC 0.01 10^3/uL Granulocyte % 49.7 % 38-83 Lymphocyte % 39.2 % 25-47 Monocyte % 8.0 % 1-9 Eosinophil % 2.2 % 0-6 Basophil % 0.9 % 0-2 Nucleated Red Blood Cells % 0.1 Laboratory test finding 06/16/2017 C Reactive Protein 2.48 mg/L < 5.00 15 Erythrocyte Sed Rate 13 mm/Hr 0-40 Lyme Western Blot 06/16/2017 Lyme Disease IgG Ab WB Negative Negative Lyme Disease IgG Bands Present p23, kDa Lyme Disease IgM Ab WB Negative Negative Lyme Disease IgM Bands Present p23, kDa Lyme Disease Interpretation See Comment 16 Laboratory test finding 06/16/2017 Rheumatoid Factor <15 IU/mL <15 17 Uric Acid 4.6 mg/dL 2.3-6.6 Xray 06/15/2017 MRI, Lower Extremity, Any Joint; W/O Abnormal Contrast, Right CBC No Diff 06/09/2017 White Blood Count 7.5 10^3/uL 3.5-10.8 Red Blood Count 4.27 10^6/uL 4.0-5.4 Hemoglobin 13.3 g/dL 12.0-16.0 Hematocrit 39 % 35-47 Mean Corpuscular Volume 91 fL 80-97 Mean Corpuscular Hemoglobin 31 pg 27-31 Mean Corpuscular HGB Conc 34 g/dL 31-36 Red Cell Distribution Width 13 % 10.5-15 Platelet Count 373 10^3/uL 150-450 Mean Platelet Volume 8 um3 7.4-10.4 Laboratory test finding 06/09/2017 Erythrocyte Sed Rate 16 mm/Hr 0-40 Basic Metabolic Panel 06/07/2017 Sodium 131 mmol/L Low 133-145 Potassium 4.7 mmol/L 3.5-5.0 Chloride 100 mmol/L Low 101-111 Co2 Carbon Dioxide 23 mmol/L 22-32 Anion Gap 8 mmol/L 2-11 Glucose 99 mg/dL 70-100 Blood Urea Nitrogen 19 mg/dL 6-24 Creatinine 0.78 mg/dL 0.51-0.95 BUN/Creatinine Ratio 24.4 High 8-20 Calcium 9.3 mg/dL 8.6-10.3 Egfr Non- 72.8 >60 Egfr 93.6 >60 18 Basic Metabolic Panel 05/04/2017 Sodium 134 mmol/L 133-145 Potassium 4.5 mmol/L 3.5-5.0 Chloride 102 mmol/L 101-111 Co2 Carbon Dioxide 25 mmol/L 22-32 Anion Gap 7 mmol/L 2-11 Glucose 101 mg/dL 70-140 Blood Urea Nitrogen 18 mg/dL 6-24 Creatinine 0.79 mg/dL 0.51-0.95 BUN/Creatinine Ratio 22.8 High 8-20 Calcium 9.3 mg/dL 8.6-10.3 Egfr Non- 71.7 >60 Egfr 92.3 >60 19 Laboratory test 05/04/2017 Hemoglobin A1c (Glyco 5.7 % Less than 6.0 20 finding HGB) Xray 05/04/2017 Hips, Bilateral, Min. Sever Rt, mild Of 2 Veiw/Hip leftA Laboratory test 03/28/2017 Urine Culture And SEE RESULT 21 finding Sensitivities BELOW Ua Routine 03/28/2017 Ua Specific [place] 1.010 Ua PH 5 Ua Color Dark yellow Ua Appera Cloudy Ua WBC ++ Ua Protein - Ua Glucose - Ua Ketones - Ua Bilirubin - Ua Urobilinogen - Ua Nitrite + Ua Occult Blood - Order 02/24/2017 Colonoscopy Polyp CBC No Diff 01/14/2017 Hematocrit 44 Hemoglobin 14.7 Platelet Count 270 RBC Red Blood Count 4.81 RDW 14 White Blood Count 5.3 MCH (Corpuscular Hemoglobin) 31 MCHC (Corpuscular Hemog Conc) 34 MPV 8 MCV (Corpuscular Volume) 91 BMP 01/14/2017 Calcium Level 9.1 Creatinine W/O Egfr 0.83 Sodium 134 Carbon Dioxide 24 Glucose 102 High 70-100 mg/dL Chloride 103 Potassium 4.4 BUN 11 GFR-Glomerular Filtration Rate 67.8 Lipid Panel 01/14/2017 Cholesterol Total 257 High Density Lipoprotein 77.1 Triglycerides 118 LDL Chol 156 Laboratory test finding 01/14/2017 Hemoglobin A1c 5.6 Vitamin D 25 Hydroxy 39.1 Ua Routine 01/14/2017 Ua Specific [place] 1.018 Ua PH 6.0 Ua Color Yellow Ua Appera Clear Ua WBC Trace (0-5/hpf) Ua Protein Negative Ua Glucose Negative Ua Ketones Negative Ua Bilirubin Negative Ua Urobilinogen Negative Ua Nitrite Negative Ua Occult Blood Negative Xray 01/19/2016 Mammography, Screening, Bilateral Normal CBC No Diff 01/13/2016 White Blood Count 5.5 10^3/uL 3.5-10.8 Red Blood Count 4.97 10^6/uL 4.0-5.4 Hemoglobin 15.3 g/dL 12.0-16.0 Hematocrit 46 % 35-47 Mean Corpuscular Volume 92 fL 80-97 Mean Corpuscular Hemoglobin 31 pg 27-31 Mean Corpuscular HGB Conc 34 g/dL 31-36 Red Cell Distribution Width 14 % 10.5-15 Platelet Count 321 10^3/uL 150-450 Mean Platelet Volume 8 um3 7.4-10.4 Comp Metabolic Panel 01/13/2016 Sodium 135 mmol/L 133-145 Potassium 4.5 mmol/L 3.5-5.0 Chloride 104 mmol/L 101-111 Co2 Carbon Dioxide 25 mmol/L 22-32 Anion Gap 6 mmol/L 2-11 Glucose 105 mg/dL High 70-100 Blood Urea Nitrogen 16 mg/dL 6-24 Creatinine 0.80 mg/dL 0.51-0.95 BUN/Creatinine Ratio 20.0 8-20 Calcium 9.4 mg/dL 8.6-10.3 Total Protein 6.8 g/dL 6.4-8.9 Albumin 4.2 g/dL 3.2-5.2 Globulin 2.6 g/dL 2-4 Albumin/Globulin Ratio 1.6 1-3 Total Bilirubin 0.60 mg/dL 0.2-1.0 Alkaline Phosphatase 78 U/L 34-104 Alt 9 U/L 7-52 Ast 16 U/L 13-39 Egfr Non- 70.9 >60 Egfr 91.2 >60 22 Lipid Profile (Trig/Chol/HDL) 01/13/2016 Triglycerides 88 mg/dL <150 23 Cholesterol 254 mg/dL High <200 24 HDL Cholesterol 80.4 mg/dL >35 25 LDL Cholesterol 156 mg/dL <160 26 Laboratory test finding 01/13/2016 Hemoglobin A1c (Glyco 5.6 % Less than 6.0 27 HGB) Vitamin D Total 25(Oh) 39.3 ng/mL 30-50 Ua Routine 01/05/2016 Ua Specific [place] 1.010 Ua PH 6.0 Ua Color Light yellow Ua Appera Cloudy Ua WBC ++ Ua Protein - Ua Glucose - Ua Ketones + Ua Bilirubin - Ua Urobilinogen - Ua Nitrite + Ua Occult Blood + Laboratory test finding 10/21/2015 Vitamin D Total 25(Oh) 49.8 ng/mL 30- 50 Laboratory test finding 05/06/2015 Vitamin D Total 25(Oh) 36.9 ng/mL 30- 50 28, 29 Basic Metabolic Panel 05/06/2015 Sodium 134 mmol/L 133-145 28 Potassium 4.4 mmol/L 3.5-5.0 28 Chloride 103 mmol/L 101-111 28 Co2 Carbon Dioxide 23 mmol/L 22-32 28 Anion Gap 8 mmol/L 2-11 28 Glucose 101 mg/dL High 70-100 28 Blood Urea Nitrogen 15 mg/dL 6-24 28 Creatinine 0.86 mg/dL 0.51-0.95 28 BUN/Creatinine Ratio 17.4 8-20 28 Calcium 9.3 mg/dL 8.6-10.3 28 Egfr Non- 65.4 >60 28 Egfr 84.1 >60 28, 30 Lipid Profile (Trig/Chol/HDL) 05/06/2015 Triglycerides 84 mg/dL 28, 31 Cholesterol 252 mg/dL 28, 32 HDL Cholesterol 81.5 mg/dL 28, 33 LDL Cholesterol 154 mg/dL 28, 34 Urinalysis Profile 01/17/2015 Urine Color Yellow 35 Urine Appearance Clear 35 Urine Specific [place] 1.023 1.010-1.030 35 Urine pH 6.0 5-9 35 Urine Urobilinogen Negative Negative 35 Urine Ketones Negative Negative 35 Urine Protein Negative Negative 35 Urine Leukocytes Negative Negative 35 Urine Blood Negative Negative 35 Urine Nitrite Negative Negative 35 Urine Bilirubin Negative Negative 35 Urine Glucose Negative Negative 35 Laboratory test finding 01/17/2015 Vitamin D Total 25(Oh) 29.7 ng/mL Low 30-50 35, 36 Hemoglobin A1c 5.4 % Less than 6.0 35, 37 Insulin Level 5.3 mcIU/mL 2.6 - 24.9 35, 38 Lipid Profile (Trig/Chol/HDL) 01/17/2015 Triglycerides 85 mg/dL 35, 39 Cholesterol 239 mg/dL 35, 40 HDL Cholesterol 72.9 mg/dL 35, 41 LDL Cholesterol 149 mg/dL 35, 42 Comp Metabolic Panel 01/17/2015 Sodium 135 mmol/L 133-145 35 Potassium 4.4 mmol/L 3.5-5.0 35 Chloride 106 mmol/L 101-111 35 Co2 Carbon Dioxide 24 mmol/L 22-32 35 Anion Gap 5 mmol/L 2-11 35 Glucose 104 mg/dL High 70-100 35 Blood Urea Nitrogen 14 mg/dL 6-24 35 Creatinine 0.86 mg/dL 0.51-0.95 35 BUN/Creatinine Ratio 16.3 8-20 35 Calcium 9.3 mg/dL 8.6-10.3 35 Total Protein 6.6 g/dL 6.4-8.9 35 Albumin 4.2 g/dL 3.2-5.2 35 Globulin 2.4 g/dL 2-4 35 Albumin/Globulin Ratio 1.8 1-3 35 Total Bilirubin 0.60 mg/dL 0.2-1.0 35 Alkaline Phosphatase 90 U/L 34-104 35 Alt 9 U/L 7-52 35 Ast 15 U/L 13-39 35 Egfr Non- 65.4 >60 35 Egfr 84.1 >60 35, 43 CBC No Diff 01/17/2015 White Blood Count 5.5 10^3/uL 4.8-10.8 35 Red Blood Count 4.70 10^6/uL 4.0-5.4 35 Hemoglobin 15.2 g/dL 12.0-16.0 35 Hematocrit 44 % 35-47 35 Mean Corpuscular Volume 93 fL 80-97 35 Mean Corpuscular Hemoglobin 32 pg High 27-31 35 Mean Corpuscular HGB Conc 35 g/dL 31-36 35 Red Cell Distribution Width 14 % 10.5-15 35 Platelet Count 293 10^3/uL 150-450 35 Mean Platelet Volume 8 um3 7.4-10.4 35 Xray 01/13/2015 Mammography, Screening, Bilateral Negative 1 *Ascorbic acid is present which may interfere with detection of blood. 2 AA 01/03 3 AA 01/03 4 SEE RESULT BELOW Name: COLE KONG : [address]: Kaylee Montano MD Acct: [id number] Unit: [id number] AGE: 72 Location: [facility] Re12/12/17 SEX: F Status: REG REF SPEC: [id number] ROSAMARIA: 12/12/17-[address] [facility] [address]: Kaylee Montano MD REQ: [id number] RECD: 12/12/17 STATUS: COMP _ SOURCE: URINE SPDESC: ORDERED: Urine Culture QUERIES: Urine Source: Random Procedure Result Reported Site Urine Culture Final 12/14/17- 0828 ML Organism 1 ESCHERICHIA COLI [place] Count >100,000 (Many) CFU/ML 1. ESCHERICHIA COLI M.I.C. RX --------- ------ Ampicillin >=32 R Cefazolin <=4 S Cefepime <=1 S Ceftriaxone <=1 S Ciprofloxacin 0.5 S Gentamicin <=1 S Levofloxacin 1 S Meropenem <=0.25 S Nitrofurantoin 64 I Tetracycline >=16 R Pipercillin/Tazobactam <=4 S Trimethoprim/Sulfamethoxazole >=320 R Amoxicillin/Clavulanic Acid 4 S Aztreonam <=1 S Contact the Microbiology Department for any additional antibiotic reporting. * ML - Main Lab . END OF REPORT DEPARTMENT OF PATHOLOGY, [address] [place] [address] Roni Dey M.D. Director [facility] # [id number] 5 *Ascorbic acid is present which may interfere with detection of blood. 6 SEE RESULT BELOW Name: COLE KONG : [address]: Kaylee Montano MD Acct: [id number] Unit: [id number] AGE: 72 Location: [facility] Re12/10/17 SEX: F Status: REG REF SPEC: [id number] ROSAMARIA: 12/10/[address]: Kaylee Montano MD REQ: [id number] RECD: 12/10/17 STATUS: COMP _ SOURCE: URINE SPDESC: ORDERED: Urine Culture Procedure Result Reported Site Urine Culture Final 12/12/17- 726 ML Organism 1 ESCHERICHIA COLI [place] Count 25-50,000 (Moderate) CFU/ML 1. ESCHERICHIA COLI M.I.C. RX --------- ------ Ampicillin >=32 R Cefazolin <=4 S Cefepime <=1 S Ceftriaxone <=1 S Ciprofloxacin <=0.25 S Gentamicin <=1 S Levofloxacin 1 S Meropenem <=0.25 S Nitrofurantoin 32 S Tetracycline >=16 R Pipercillin/Tazobactam <=4 S Trimethoprim/Sulfamethoxazole >=320 R Amoxicillin/Clavulanic Acid 4 S Aztreonam <=1 S Contact the Microbiology Department for any additional antibiotic reporting. * ML - Main Lab . END OF REPORT DEPARTMENT OF PATHOLOGY, [address] [place] [address] Roni Dey M.D. Director [facility] # [id number] 7 Because ethnic data is not always readily available, this report includes an eGFR for both -Americans and non- Americans. The National Kidney Disease Education Program (NKDEP) does not endorse the use of the MDRD equation for patients that are not between the ages of 18 and 70, are , have extremes of body size, muscle mass, or nutritional status, or are non- or non-. According to the National Kidney Foundation, irrespective of diagnosis, the stage of the disease is based on the level of kidney function: Stage Description GFR(mL/min/1.73 m(2)) 1 Kidney damage with normal or decreased GFR 90 2 Kidney damage with mild decrease in GFR 60-89 3 Moderate decrease in GFR 30-59 4 Severe decrease in GFR 15-29 5 Kidney failure <15 (or dialysis) 8 Desirable: <150 Borderline High: 150-199 High: 200-499 Very High: >500 9 Desirable: <200 Borderline High: 200-239 High: >239 10 Low: <40 Desirable: 40-60 High: >60 11 Desirable: <100 Near Optimal: 100-129 Borderline High: 130-159 High: 160-189 Very High: >189 12 Therapeutic target for the treatment of diabetes mellitus patients is <7% HBA1C, and in selective patients <6.0%. Please refer to [place] [employer] diabetic care guidelines for further information. 13 SEE RESULT BELOW Name: COLE KONG : [address]: Kaylee Montano MD Acct: [id number] Unit: [id number] AGE: 71 Location: [facility] Re11/30/17 SEX: F Status: REG REF SPEC: [id number] ROSAMARIA: 11/30/[address]: Kaylee Montano MD REQ: [id number] RECD: 11/30/17 STATUS: COMP _ SOURCE: URINE SPDESC: ORDERED: Urine Culture COMMENTS: FASTING Procedure Result Reported Site Urine Culture Final 12/02/17815 ML Organism 1 ESCHERICHIA COLI [place] Count >100,000 (Many) CFU/ML 1. ESCHERICHIA COLI M.I.C. RX --------- ------ Ampicillin >=32 R Cefazolin <=4 S Cefepime <=1 S Ceftriaxone <=1 S Ciprofloxacin <=0.25 S Gentamicin <=1 S Levofloxacin 1 S Meropenem <=0.25 S Nitrofurantoin <=16 S Tetracycline >=16 R Pipercillin/Tazobactam <=4 S Trimethoprim/Sulfamethoxazole >=320 R Amoxicillin/Clavulanic Acid 4 S Aztreonam <=1 S Contact the Microbiology Department for any additional antibiotic reporting. * ML - Main Lab . END OF REPORT DEPARTMENT OF PATHOLOGY, [address] [place] [address] Roni Dey M.D. Director [facility] # [id number] 14 SEE RESULT BELOW Name: COLE KONG : [address]: Kaylee Montano MD Acct: [id number] Unit: [id number] AGE: 71 Location: [facility] Re09/21/17 SEX: F Status: REG REF SPEC: [id number] ROSAMARIA: 09/21/[address]: Kaylee Montano MD REQ: [id number] RECD: 09/21/17 STATUS: COMP _ SOURCE: URINE SPDESC: ORDERED: Urine Culture COMMENTS: [id number] QUERIES: Urine Source: Random Procedure Result Reported Site Urine Culture Final 09/23/17727 ML Organism 1 ESCHERICHIA COLI [place] Count 25-50,000 (Moderate) CFU/ML 1. ESCHERICHIA COLI M.I.C. RX --------- ------ Ampicillin 4 S Cefazolin <=4 S Cefepime <=1 S Ceftriaxone <=1 S Ciprofloxacin <=0.25 S Gentamicin <=1 S Levofloxacin <=0.12 S Meropenem <=0.25 S Nitrofurantoin <=16 S Tetracycline <=1 S Pipercillin/Tazobactam <=4 S Trimethoprim/Sulfamethoxazole <=20 S Amoxicillin/Clavulanic Acid <=2 S Aztreonam <=1 S Contact the Microbiology Department for any additional antibiotic reporting. * ML - MAIN LAB ([facility]) . END OF REPORT * ML=Testing performed at Main Lab DEPARTMENT OF PATHOLOGY, [address] [place] [address] Roni Dey M.D. Director [facility] # [id number] 15 Acute inflammation: >10.00 16 Specific serologic response to B. burgdorferi infection is not detected, but cannot rule out early infection during which low or undetectable antibody levels to B. burgdorferi may be present. If clinically indicated, a new serum specimen should be submitted in 7-14 days. ADDITIONAL INFORMATION CDC criteria require >=5 bands for IgG or >=2 bands for IgM for the Immunoblot to be considered positive. Bands (e.g.,p41) may be detected in patients without Lyme disease, and patterns not meeting the CDC criteria should be interpreted with caution. Immunoblot should be ordered only on specimens that are positive or equivocal by a FDA-licensed Lyme disease antibody screening test (e.g., EIA). Test Performed by: [facility] [address] [place] [address] 17 Test Performed by: [facility] [address] [place] [address] 18 Because ethnic data is not always readily available, this report includes an eGFR for both -Americans and non- Americans. The National Kidney Disease Education Program (NKDEP) does not endorse the use of the MDRD equation for patients that are not between the ages of 18 and 70, are , have extremes of body size, muscle mass, or nutritional status, or are non- or non-. According to the National Kidney Foundation, irrespective of diagnosis, the stage of the disease is based on the level of kidney function: Stage Description GFR(mL/min/1.73 m(2)) 1 Kidney damage with normal or decreased GFR 90 2 Kidney damage with mild decrease in GFR 60-89 3 Moderate decrease in GFR 30-59 4 Severe decrease in GFR 15-29 5 Kidney failure <15 (or dialysis) 19 Because ethnic data is not always readily available, this report includes an eGFR for both -Americans and non- Americans. The National Kidney Disease Education Program (NKDEP) does not endorse the use of the MDRD equation for patients that are not between the ages of 18 and 70, are , have extremes of body size, muscle mass, or nutritional status, or are non- or non-. According to the National Kidney Foundation, irrespective of diagnosis, the stage of the disease is based on the level of kidney function: Stage Description GFR(mL/min/1.73 m(2)) 1 Kidney damage with normal or decreased GFR 90 2 Kidney damage with mild decrease in GFR 60-89 3 Moderate decrease in GFR 30-59 4 Severe decrease in GFR 15-29 5 Kidney failure <15 (or dialysis) 20 Therapeutic target for the treatment of diabetes Mellitus patients is <7% HBA1C, and in selective patients <6.0%.Please refer to [place] [employer] Diabetic care guidelines for further information. 21 SEE RESULT BELOW Name: COLE KONG : [address]: Kaylee Montano MD Acct: [id number] Unit: [id number] AGE: 71 Location: [facility] Re03/28/17 SEX: F Status: REG REF SPEC: [id number] ROSAMARIA: 03/28/17-[address]: Kaylee Montano MD REQ: [id number] RECD: 03/28/17-1215 STATUS: COMP _ SOURCE: URINE SPDESC: ORDERED: Urine Culture COMMENTS: [id number] Urine Source: Random Procedure Result Reported Site Urine Culture Final 03/29/17- 1226 ML Organism 1 STAPHYLOCOCCUS SAPROPHYTICUS Routine sensitivity testing of urine isolates of S. saprophyticus is not advised, because infections respond to concentrations achieved in urine of antimicrobial agents commonly used to treat acute, uncomplicated urinary tract infections (e.g. nitrofurantoin, trimethoprim+/- sulfamethoxazole, or a fluoroquinolone). [facility] August 2001 * ML - MAIN LAB ([facility]) . END OF REPORT * ML=Testing performed at Main Lab DEPARTMENT OF PATHOLOGY, [address] [place] [address] Roni Dey M.D. Director [facility] # [id number] 22 Because ethnic data is not always readily available, this report includes an eGFR for both -Americans and non- Americans. The National Kidney Disease Education Program (NKDEP) does not endorse the use of the MDRD equation for patients that are not between the ages of 18 and 70, are , have extremes of body size, muscle mass, or nutritional status, or are non- or non-. According to the National Kidney Foundation, irrespective of diagnosis, the stage of the disease is based on the level of kidney function: Stage Description GFR(mL/min/1.73 m(2)) 1 Kidney damage with normal or decreased GFR 90 2 Kidney damage with mild decrease in GFR 60-89 3 Moderate decrease in GFR 30-59 4 Severe decrease in GFR 15-29 5 Kidney failure <15 (or dialysis) 23 Desirable <150 Borderline high 150-199 High 200-499 Very High >500 24 Desirable <200 Borderline high 200-239 High >239 25 Low <40 Desirable: 40-60 High: >60 26 Desirable: <100 mg/dL Near Optimal: 100-129 mg/dL Borderline High: 130-159 mg/dL High: 160-189 mg/dL Very High: >189 mg/dL 27 Therapeutic target for the treatment of diabetes Mellitus patients is <7% HBA1C, and in selective patients <6.0%.Please refer to [place] [employer] Diabetic care guidelines for further information. 28 PT IS FASTING 29 PT IS FASTING 30 Because ethnic data is not always readily available, this report includes an eGFR for both -Americans and non- Americans. The National Kidney Disease Education Program (NKDEP) does not endorse the use of the MDRD equation for patients that are not between the ages of 18 and 70, are , have extremes of body size, muscle mass, or nutritional status, or are non- or non-. According to the National Kidney Foundation, irrespective of diagnosis, the stage of the disease is based on the level of kidney function: Stage Description GFR(mL/min/1.73 m(2)) 1 Kidney damage with normal or decreased GFR 90 2 Kidney damage with mild decrease in GFR 60-89 3 Moderate decrease in GFR 30-59 4 Severe decrease in GFR 15-29 5 Kidney failure <15 (or dialysis) 31 Desirable <150 Borderline high 150-199 High 200-499 Very High >500 32 Desirable <200 Borderline high 200-239 High >239 33 Low <40 Desirable: 40-60 High: >60 34 Desirable: <100 mg/dL Near Optimal: 100-129 mg/dL Borderline High: 130-159 mg/dL High: 160-189 mg/dL Very High: >189 mg/dL 35 FASTING 36 FASTING 37 Therapeutic target for the treatment of diabetes Mellitus patients is <7% HBA1C, and in selective patients <6.0%.Please refer to [place] [employer] Diabetic care guidelines for further information. 38 Test Performed by: [place] [address] [employer] Attendant: José Tam II, M.D., Ph.D. 39 Desirable <150 Borderline high 150-199 High 200-499 Very High >500 40 Desirable <200 Borderline high 200-239 High >239 41 Low <40 Desirable: 40-60 High: >60 42 Desirable: <100 mg/dL Near Optimal: 100-129 mg/dL Borderline High: 130-159 mg/dL High: 160-189 mg/dL Very High: >189 mg/dL 43 Because ethnic data is not always readily available, this report includes an eGFR for both -Americans and non- Americans. The National Kidney Disease Education Program (NKDEP) does not endorse the use of the MDRD equation for patients that are not between the ages of 18 and 70, are , have extremes of body size, muscle mass, or nutritional status, or are non- or non-. According to the National Kidney Foundation, irrespective of diagnosis, the stage of the disease is based on the level of kidney function: Stage Description GFR(mL/min/1.73 m(2)) 1 Kidney damage with normal or decreased GFR 90 2 Kidney damage with mild decrease in GFR 60-89 3 Moderate decrease in GFR 30-59 4 Severe decrease in GFR 15-29 5 Kidney failure <15 (or dialysis) Procedures Date CPT Code Description Status Comment 12/13/2017 84458 Electrocardiogram Complete Completed 10/14/2017 Mammogram Completed 10/13/2017 Mammogram Completed Normal 06/28/2017 85021 Electrocardiogram Complete Completed 02/24/2017 Colonoscopy Completed 02/20/2017 Colonoscopy Completed Sessile adenomatous polyp, following with GI Q 5yrs 01/19/2016 Mammogram Completed 10/16/2015 68560 Remove impacted cerumen, 1 or Completed both ears 10/16/2015 10953 Remove impacted cerumen, 1 or Completed both ears 01/17/2015 Mammogram Completed 01/08/2015 Mammogram Completed 08/29/2012 Bone Mineral Density Test Completed "Normal" Encounters Type Date Location Provider CPT E/M Dx Office Visit 12/23/2017 11:00a [place] [address] N39.0 N95.2 Office Visit 12/13/2017 10:00a [place] [address] Z01.818 M16.0 N39.0 R73.01 E78.00 F33.1 Office Visit 2017 10:00a [place] [address] N95.2 Office Visit 11/30/2017 9:20a [place] [address] N39.0 R35.0 Office Visit 11/02/2017 2:00p [place] [address] N39.0 R35.0 Office Visit 09/21/2017 10:20a [place] [address] R35.0 R39.15 Office Visit 06/28/2017 11:40a [place] [address] Z01.818 M25.551 F33.1 E78.2 Office Visit 06/16/2017 1:20p [place] [address] M25.551 Office Visit 06/09/2017 11:00a [place] [address] M25.551 M16.0 Office Visit 05/11/2017 12:00p [place] [address] M16.0 M25.551 Z79.1 Z23 Office Visit 05/04/2017 11:20a [place] [address] M25.551 G47.00 F33.1 R73.01 Office Visit 03/28/2017 10:40a [place] [address] N39.0 Office Visit 01/20/2017 11:20a [place] [address] Z00.01 R73.01 E78.2 E55.9 F33.1 Z12.39 Office Visit 11/09/2016 11:20a [place] [address] F33.1 Office Visit 01/05/2016 2:40p [place] [address] N39.0 Office Visit 10/24/2015 12:20p [place] [address] R05 K21.9 Office Visit 10/16/2015 3:40p [place] [address] H81.10 H61.21 H61.22 H61.23 F32.9 E55.9 Office Visit 05/08/2015 10:40a [place] [address] V03.82 V03.82 V04.81 272.2 790.21 268.9 311 780.52 Office Visit 02/05/2015 3:20p Main Office Sean Sandy, GR[employer]UATE STUDENT-C 44137 780.79 719.46 790.21 272.2 780.52 268.9 Office Visit 01/13/2015 3:00p [place] [address] V70.0 V76.19 790.21 Plan of Care Future Appointment(s):02/06/2018 11:20 am - Kaylee Montano MD at Main [id number]/23/2017 - Kaylee Montano MDN39.0 Urinary tract infection, site not specifiedComments:Asymptomatic.UA improved with nonspecific changes.Culture pending.For now no Rx advised.N95.2 Postmenopausal atrophic vaginitisComments: Se has not started Rx yet and is advised to do so.
--- OUTSIDE RECORDS SUMMARY | 2018-01-03 13:36 | XMS REPORT ---
:1945 External Reference #:[id number] Author Organization [facility] Address [address] [address] Phone [phone] Care Team Providers Name Role Phone Kaylee Montano MD Primary Care Physician Unavailable Payers Type Date Identification Numbers Payment Provider Subscriber Medicare Primary Expires: Policy Number: Medicare Cole Live 2017 [id number] Khris PayID: [id number] [address] [place] [address] Medigap Part B Policy Number: [id number] [employer] Medicare Cole Live [employer] Number: [id number] [address] PayID: [id number] [place] [address] Problems Date Description Provider Status Onset: 02/12/2008 Chronic ulcerative proctitis Madhuri Short M.D.,FACP Onset: 02/12/2008 Moderate recurrent major depression Madhuri Short M.D.,FACP Onset: 10/20/2010 Overweight Madhuri Short M.D.,FACP Onset: 10/20/2010 Onychomycosis Madhuri Short M.D.,FACP Onset: 10/20/2010 Urge incontinence of urine Madhuri Short M.D.,FACP Onset: 04/28/2011 Pure hypercholesterolemia Madhuri Short M.D.,FACP Onset: 04/28/2011 History of malignant melanoma of Madhuri Short the skin Sharon,FACP Onset: 10/10/2013 Female stress incontinence Madhuri Short M.D.,FACP Onset: 10/10/2013 Impaired fasting glycaemia Madhuri Short M.D.,FACP Onset: 06/24/2017 Localized, primary osteoarthritis Vivienne Resendez M.D. 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 Allergies, Adverse Reactions, Alerts Date Description Reaction Status Severity Comments 02/12/2008 Penicillin active childhood 09/20/2011 Mold snezzing active 09/20/2011 Dogs sneezing active Medications Medication Date Status Form Strength Qnty SIG Indications Ordering Provider Clindamycin HCL 12/08 Active Capsules 300mg 2caps take two tabs one Mal, hour prior M.D. to dental work Ondansetron 07/15 Active Tablets 4mg one tablet Dispers every 8 Mal, hours as M.D. needed for pain Vitamin D-3 Active Tablets 2000Unit 1 po qd Sertraline HCL Active Unknown Cipro Active Tablets 500mg 1 by mouth twice a day for 10 days Cyclobenzaprine 07/25 Hx Tablets 10mg 60tab take 1 tab M25.551 s by mouth 2 Mal, - times a day M.D. 10/04 as needed Tramadol HCL 07/23 Hx Tablets 50mg 30tab 1 tab by s mouth every Mal, - 8 hours as M.D. 08/18 needed pain Warfarin Sodium 07/06 Hx Tablets 2mg 90tab take 1-3 s tabs by Mal, - mouth at 5pm M.D. 08/18 nightly. not take before surgery. Oxycodone-Acetami 07/06 Hx Tablets 5-325mg 90tab 1-2 tabs by Vivienne s mouth every Mal, - 4-6 hours as M.D. 07/24 needed for pain Eq Stool Softener 07/06 Hx Capsules 100mg 90cap take 1-3 Vivienne s tabs daily Mal, - as needed M.D. 08/18 for constipation . Cheratussin ac 09/24 Hx Solution 100-10mg/ 200ml 5-10 786.2 5ML milliliters Kady HEARING SCREENER - by mouth 10/11 four times a day as needed Vivotif Karolina 06/17 Hx Capsules 4caps by mouth V65.[address] every other Jluis Stanley, - day for 4 M.D.,FACP 09/24 doses Atovaquone-Progua 06/17 Hx Tablets 250-100mg 28tab 1 by mouth V65.49 Irvin nil HCL s every day Jluis Stanley, - start 2 days M.D.,FACP 09/24 prior to exposure and continue for 1 week after trip ended Azithromycin 06/17 Hx Tablets 250mg 6tabs 2 every day V65.49 Irvin for 1 day, Jluis Stanley, - then 1 every M.D.,FACP /2014 Estrace 10/10 Hx Cream 0.1mg/GM 42.5u insert 627.2 Irvin nits one-half Jluis Stanley, - applicator M.D.,FACP 06/17 vaginally twice weekly, also apply around urethra Cipro 09/19 Hx Tablets 500mg 10tab 1 po bid x 5 s days Ordering - Provider 10/10 Ibuprofen 09/20 Hx Tablets 600mg 30tab 1 tab by 726.19 Gisele s mouth three Ceballos, - times a day M.D. 10/21 prn Diclofenac Sodium 09/20 Hx Tablets 100mg 60tab 1 tab by Osbaldo XR ER 24HR s mouth every Young, - day M.D. 10/21 Erythromycin 02/16 Hx Tablets 333mg 30tab po tid for 462 DR aiken 10 days Sherrill Arauz M.D.,[facility] 02/16 Robitussin ac 02/16 Hx Solution 6Oz 1-2 tsp po 462 qid prn Sherrill Arauz cough Sharon,[facility] 04/28 Erythromycin Base 02/16 Hx Tablets 250mg 40tab po qid 462 s Sherrill Arauz M.D.,[facility] 04/28 Ciclopirox Nail 10/20 Hx Solution 8% 3bott topical qd 110.1 les for 6 days, Jluis Stanley, - remove q MAnne,[facility] 09/20 week, up to 48 wks Levaquin 07/08 Hx Tablets 750mg 7tabs once daily 381.00 Heron Katelyn Mccartney M.D. 10/20 Levaquin 01/31 Hx Tablets 500mg 10tab 1 po qd x 786.2 s 10days Sherrill Arauz M.D.,[facility] 07/31 Calcium + D 07/23 Hx Tablets 600mg 1 PO qPM Sherrill Arauz M.D.,[facility] 10/10 Doxycycline 02/[address] 100mg 42cap PO bid for 3 cl Part s wks Sherrill Arauz M.D.,[facility] 07/23 Detrol LA 02/11 Hx Caps ER 2mg 90cap Take 1 24HR s Capsule Jluis Stanley, - Every M.D.,[facility] 10/10 Fluoxetine HCL Hx Capsules 10mg Alternate days of 10mg Jluis Stanley, - and 20mg qd M.D.,FACP 09/20 Nortriptyline HCL Hx Capsules 50mg 90cap Take 1 s Capsule At Jluis Stanley, - Bedtime M.DMaggy,[facility] 09/20 Provigil 0000 Hx Tablets 100mg ? 30tab 1 po qd Unknown /0000 s - 09/20 Valium Hx Tablets 2mg 6tabs one po two Unknown /0000 hours before - mri and december 28 repeat q hour prn anxiety Sertraline HCL /00 Hx Tablets 25mg 90tab 3 po qd Unknown /0000 s - 06/17 Vitamin D Hx Tablets 1000Unit 90tab 1 po qd Unknown /0000 s - 10/21 Zyrtec Allergy Hx Tablets 10mg 30tab 1 tab qd prn Unknown /0000 s - 06/17 Dedolor Hx 100mg 1 po bid Unknown /0000 - 10/21 Bupropion HCL ER 00 Hx Tablets 200mg 60tab 1 po in am Unknown /0000 ER 12HR s - 09/05 Probiotic Hx Capsules 14cap 1 by mouth Unknown /0000 s every day - 09/05 Immunizations CPT Code Status Date Vaccine Reaction Lot # [id number] Given 06/17/2014 Hepatitis A Vaccine Adult [id number] Dosage 54538 Given 06/11/2014 Influenza Virus Vaccine, [id number] Quadrivalent, Split, Preservative Free 54066 Given 08/02/2013 Flu Vaccine Split Virus [id number] Preservative Free For Indiv 3Yr Older [id number] Given 06/05/2012 Fluzone Vaccine 49680 Given 10/21/2011 Pneumonia Vaccine [id number] 79691 Given 09/20/2011 Influenza Virus 3Yrs & Over 58310 Given 09/02/2010 Influenza Virus 3Yrs & [id number] Over 74820 Given 06/13/2009 Influenza Virus 3Yrs & Over 03668 Given 06/13/2009 Influenza Virus 3Yrs & [id number] Over 77660 Given 07/23/2008 Zoster (Zostavax) 37016 Given 07/23/2008 Zoster (Zostavax) [id number] 95188 Given 07/23/2008 Influenza Virus 3Yrs & Over 75199 Given 07/23/2008 Influenza Virus 3Yrs & [id number] Over 24310 Given 06/05/2007 Tetanus And Diptheria (Td) Received at For Adult Use Preservative O'Sheas Free Vital Signs Date Vital Result Comment 12/21/2017 Height 65 inches 5'5" Weight 162.00 lb Heart Rate 65 /min BP Systolic 105 mmHg BP Diastolic 65 mmHg Body Temperature 96.7 F BMI (Body Mass Index) 27.0 kg/m2 2017 Height 65 inches 5'5" Weight 160.00 lb Heart Rate 60 /min BP Systolic 120 mmHg BP Diastolic 70 mmHg BMI (Body Mass Index) 26.6 kg/m2 10/05/2017 Height 65 inches 5'5" Weight 160.00 lb BP Systolic 124 mmHg BP Diastolic 76 mmHg Body Temperature 98.3 F Pain Level 0 BMI (Body Mass Index) 26.6 kg/m2 08/19/2017 Height 65 inches 5'5" Weight 160.00 lb Heart Rate 80 /min BP Systolic 120 mmHg BP Diastolic 64 mmHg Pain Level 0 BMI (Body Mass Index) 26.6 kg/m2 07/25/2017 Height 65 inches 5'5" Weight 160.00 lb BP Systolic 112 mmHg BP Diastolic 66 mmHg Body Temperature 97.2 F Pain Level 1 BMI (Body Mass Index) 26.6 kg/m2 07/06/2017 Height 65.5 inches 5'5.50" Weight 160.00 lb BP Systolic 124 mmHg BP Diastolic 68 mmHg Respiratory Rate 16 /min Body Temperature 97.1 F Pain Level 2 BMI (Body Mass Index) 26.2 kg/m2 06/24/2017 Height 65.5 inches 5'5.50" Weight 160.00 lb Heart Rate 80 /min BP Systolic 124 mmHg BP Diastolic 80 mmHg Respiratory Rate 16 /min Body Temperature 96.6 F Pain Level 3 BMI (Body Mass Index) 26.2 kg/m2 10/11/2014 Height 65.5 inches 5'5.50" Weight 149.12 lb Heart Rate 79 /min BP Systolic Sitting 110 mmHg BP Diastolic Sitting 72 mmHg Body Temperature 97.1 F BMI (Body Mass Index) 24.4 kg/m2 09/24/2014 Weight 149.50 lb Heart Rate 88 /min BP Systolic Sitting 134 mmHg BP Diastolic Sitting 78 mmHg Respiratory Rate 16 /min Body Temperature 100.3 F 06/17/2014 Height 65.75 inches 5'5.75" Weight 151.00 lb Heart Rate 64 /min BP Systolic Sitting 116 mmHg BP Diastolic Sitting 62 mmHg Body Temperature 97.3 F BMI (Body Mass Index) 24.6 kg/m2 04/09/2014 Weight 156.00 lb Heart Rate 58 /min BP Systolic Sitting 124 mmHg BP Diastolic Sitting 74 mmHg 10/10/2013 Height 65.75 inches 5'5.75" Weight 167.75 lb Heart Rate 80 /min BP Systolic Sitting 104 mmHg BP Diastolic Sitting 62 mmHg BMI (Body Mass Index) 27.3 kg/m2 10/21/2011 Height 65.5 inches 5'5.50" Weight 162.50 lb Heart Rate 72 /min BP Systolic Sitting 106 mmHg BP Diastolic Sitting 66 mmHg BMI (Body Mass Index) 26.6 kg/m2 09/20/2011 Height 65.50 inches 5'5.50" Weight 172.00 lb Heart Rate 68 /min BP Systolic 121 mmHg BP Diastolic 71 mmHg BMI (Body Mass Index) 28.2 kg/m2 09/20/2011 Height 65.25 inches 5'5.25" Weight 172.00 lb Heart Rate 61 /min BP Systolic Sitting 128 mmHg BP Diastolic Sitting 75 mmHg Body Temperature 97.3 F BMI (Body Mass Index) 28.4 kg/m2 04/28/2011 Height 65.25 inches 5'5.25" Weight 160.00 lb Heart Rate 82 /min BP Systolic Sitting 112 mmHg BP Diastolic Sitting 60 mmHg BMI (Body Mass Index) 26.4 kg/m2 02/16/2011 Height 65.25 inches 5'5.25" Weight 163.00 lb Heart Rate 102 /min BP Systolic Sitting 120 mmHg BP Diastolic Sitting 74 mmHg Body Temperature 100.0 F Tympanically BMI (Body Mass Index) 26.9 kg/m2 10/20/2010 Height 65.25 inches 5'5.25" Weight 165.00 lb Heart Rate 66 /min BP Systolic Sitting 120 mmHg BP Diastolic Sitting 80 mmHg BMI (Body Mass Index) 27.2 kg/m2 07/08/2010 Weight 172.00 lb Heart Rate 77 /min BP Systolic Sitting 130 mmHg BP Diastolic Sitting 80 mmHg Body Temperature 96.1 F O2 % BldC Oximetry 98 % 07/31/2009 Height 65.25 inches 5'5.25" Weight 167.00 lb Heart Rate 100 /min BP Systolic Sitting 128 mmHg BP Diastolic Sitting 76 mmHg BMI (Body Mass Index) 27.6 kg/m2 01/31/2009 Height 66 inches 5'6" Weight 162.00 lb Heart Rate 60 /min BP Systolic Sitting 106 mmHg BP Diastolic Sitting 72 mmHg BMI (Body Mass Index) 26.1 kg/m2 07/23/2008 Height 66 inches 5'6" Weight 165.00 lb Heart Rate 68 /min BP Systolic Sitting 120 mmHg BP Diastolic Sitting 62 mmHg BMI (Body Mass Index) 26.6 kg/m2 02/19/2008 Height 66 inches 5'6" Weight 166.00 lb Heart Rate 90 /min BP Systolic Sitting 84 mmHg BP Diastolic Sitting 50 mmHg BMI (Body Mass Index) 26.8 kg/m2 02/12/2008 Height 66 inches 5'6" Weight 161.00 lb Heart Rate 82 /min BP Systolic Sitting 120 mmHg BP Diastolic Sitting 58 mmHg BMI (Body Mass Index) 26.0 kg/m2 Results Test Date Test Result H/L Range Note Urine Culture And 11/21/2014 Urine Culture (SEE NOTE) 1 Sensitivities Urine Culture And 07/28/2014 Urine Culture (SEE NOTE) 2 Sensitivities Laboratory test 04/01/2014 Hepatitis C Nonreactive Nonreactive 3, 4 finding Antibody Glucose 106 mg/dL High 70-100 3 Lipid Profile (Trig/Chol/HDL) 04/01/2014 Triglycerides 93 mg/dL 3, 5 Cholesterol 225 mg/dL 3, 6 HDL Cholesterol 70.2 mg/dL 3, 7 LDL Cholesterol 136 mg/dL 3, 8 Lipid Profile (Trig/Chol/HDL) 10/05/2013 Triglycerides 74 mg/dL 40-200 Cholesterol 265 mg/dL High Less than 200 HDL Cholesterol 85 mg/dL High 40-60 9 Cholesterol/HDL Ratio 3.1 Average 1-4.44 LDL Cholesterol 165.2 High Less Than 100 10 Laboratory test finding 10/05/2013 Glucose 110 mg/dL High 70-100 11 Urine Culture And 09/17/2013 Urine Culture (SEE NOTE) 12 Sensitivities Surgical Pathology 01/06/2012 Surgical Pathology 13 <SEE NOTE> Lipid Profile 10/07/2011 Triglyceride 98 mg/dL 40-200 (Trig/Chol/HDL) Cholesterol 259 mg/dL High Less Than 200 14 High Density Lipoprotein 71 mg/dL High 40-60 15 Cholesterol/HDL Ratio 3.65 AVERAGE 1-4.44 Low Density Lipoprotein 168 mg/dL High Less Than 100 16 Laboratory test finding 10/07/2011 Glucose 81 mg/dL 70-100 Throat Culture Full 02/16/2011 Throat Culture Full BETA STREP GROUP 17 <SEE NOTE> Throat Culture Full NORMAL DELMAR 18 Lipid Profile (Trig/Chol/HDL) 10/13/2010 Triglyceride 76 mg/dL 40-200 Cholesterol 262 mg/dL High Less Than 200 19 High Density Lipoprotein 95 mg/dL High 40-60 20 Cholesterol/HDL Ratio 2.76 AVERAGE 1-4.44 Low Density Lipoprotein 152 mg/dL High Less Than 100 21 Basic Metabolic Panel 10/13/2010 Sodium 135 mmol/L 135-145 Potassium 4.8 mmol/L 3.5-5.0 Chloride 99 mmol/L Low 101-111 Co2 (Carbon Dioxide) 27.0 mmol/L 22-32 Anion Gap 9.0 mmol/L 2-11 22 Glucose 94 mg/dL 70-100 BUN 12 mg/dL 6-24 Creatinine 0.76 mg/dL 0.50-1.40 One Over Creatinine 1.30 BUN/Creatinine Ratio 15.8 8-20 Calcium 9.0 mg/dL 8.1-9.9 eGFR Non- 76.6 > 60 eGFR 98.5 > 60 23 Basic Metabolic Panel 09/08/2009 Sodium 135 mmol/L 135-145 Potassium 4.5 mmol/L 3.5-5.0 Chloride 106 mmol/L 101-111 Co2 (Carbon Dioxide) 26.5 mmol/L 22-32 Anion Gap 2.5 mmol/L 2-11 24 Glucose 90 mg/dL 70-100 25 BUN 12 mg/dL 6-24 Creatinine 0.86 mg/dL 0.50-1.40 One Over Creatinine 1.10 BUN/Creatinine Ratio 14.0 8-20 Calcium 9.2 mg/dL 8.1-9.9 26 eGFR Non- 70.8 > 60 eGFR 85.7 > 60 27 Surgical Pathology 01/02/2009 Surgical Pathology <SEE 28 NOTE> Lipid Profile 07/31/2008 Triglyceride 57 mg/dL 40-200 29 (Trig/Chol/HDL) Cholesterol 285 mg/dL High Less Than 200 29, 30 High Density Lipoprotein 101 mg/dL High 40-60 29, 31 Cholesterol/HDL Ratio 2.82 AVERAGE 1-4.44 29 Low Density Lipoprotein 173 mg/dL High Less Than 100 29, 32 Laboratory test finding 07/31/2008 TSH 2.46 MIU/ML 0.34-5.60 29 Basic Metabolic Panel 07/31/2008 Sodium 137 mmol/L 135-145 29 Potassium 4.6 mmol/L 3.5-5.0 29 Chloride 105 mmol/L 101-111 29 Co2 (Carbon Dioxide) 27.0 mmol/L 22-32 29 Anion Gap 5.0 mmol/L 2-11 29, 33 Glucose 101 mg/dL High 70-100 29, 34 BUN 16 mg/dL 6-24 29 Creatinine 0.88 mg/dL 0.50-1.40 29 One Over Creatinine 1.10 29 BUN/Creatinine Ratio 18.2 8-20 29 Calcium 9.5 mg/dL 8.1-9.9 29, 35 Lyme Western Blot 02/23/2008 Lyme Disease (SEE NOTE) 36 Specialty Interpretation Laboratory test 02/23/2008 Lyme Disease Serology Positive Negative 37 finding Laboratory test 02/19/2008 Culture Sensitivity FINAL: NO GROWTH 38 finding <SEE NOTE> Gram Stain Smear NBO^NO ORGANISMS <SEE NOTE> 39 1 RUN DATE: 11/23/14 [facility] LAB LIVE PAGE 1 RUN TIME: [address] [place] [address] Specimen Inquiry Name: COLE WILCOX : [address]: Tawana Nevarez MD Acct: [id number] Unit: [id number] AGE: 68 Location: [facility] Re11/21/14 SEX: F Status: DEP ER SPEC: [id number] ROSAMARIA: 11/21/[address] [facility] [address]: Tawana Nevarez MD REQ: [id number] RECD: 11/21/14 STATUS: JAZIEL MCMILLAN DR: [facility] Irvin Stanley MD _ SOURCE: URINE SPDESC: ORDERED: Urine Culture Procedure Result Verified Site Urine Culture Final 11/23/14- 910 ML Organism 1 ESBL ESCHERICHIA COLI [place] Count >100,000 (Many) CFU/ML 1. ESBL ESCHERICHIA COLI M.I.C. RX --------- ------ Ampicillin >=32 R Cefazolin >=64 R Cefepime R Ceftriaxone R Ciprofloxacin <=0.25 S Gentamicin <=1 S Levofloxacin <=0.12 S Meropenem <=0.25 S Nitrofurantoin <=16 S Tetracycline >=16 R Pipercillin/Tazobactam <=4 S Trimethoprim/Sulfamethoxazole <=20 S Amoxicillin/Clavulanic Acid 4 S Aztreonam R Contact the Microbiology Department for any additional antibiotic reporting. * ML - MAIN LAB (PSC1) . END OF REPORT * ML=Testing performed at Main Lab DEPARTMENT OF PATHOLOGY, [facility] [employer] [address] [place], [place] [address] Roni Dey M.D. Director [facility] # [id number] 2 RUN DATE: 07/30/14 [facility] LAB LIVE PAGE 1 RUN TIME: 923 [facility] [employer] [place], [place] [address] Specimen Inquiry Name: COLE WILCOX : [address]: Tawana Nevarez MD Acct: [id number] Unit: [id number] AGE: 68 Location: [facility] Re07/28/14 SEX: F Status: DEP ER SPEC: [id number] ROSAMARIA: 07/28/14-[address]: Valarie Wood NP REQ: [id number] RECD: 07/28/14 STATUS: COMP DEYANIRA DR: [facility] Physicians Irvin Stanley MD _ SOURCE: URINE SPDESC: ORDERED: Urine Culture Procedure Result Verified Site Urine Culture Final 07/30/14- 923 ML Organism 1 NORMAL DELMAR [place] Count 10-25,000 (Moderate) CFU/ML END OF REPORT * ML=Testing performed at Main Lab DEPARTMENT OF PATHOLOGY, [address] [place] [address] Roni Dey M.D. Director [facility] # [id number] 3 PT IS FASTING 4 PT IS FASTING 5 Desirable <150 Borderline high 150-199 High 200-499 Very High >500 6 Desirable <200 Borderline high 200-239 High >239 7 Low <40 Desirable: 40-60 High: >60 8 Desirable <100 Near Optimal 100-129 Borderline high 130-159 High 160-189 Very High >189 9 HDL Interpretation: Undesirable: High Risk: Less than 40 mg/dL Desirable: Low Risk: Greater than 60 mg/dL 10 LDL Interpretation: Low Risk Optimal Level: LDL Less than 100 mg/dL Near or Above Optimal: LDL 100-129 mg/dL Borderline High Risk: LDL 130-159 mg/dL High Risk: LDL 160-189 mg/dL Very High Risk: LDL Greater than 189 mg/dL 11 PT IS FASTING 12 RUN DATE: 09/19/13 [facility] LAB LIVE PAGE 1 RUN TIME: [address] [place], [place] [address] Specimen Inquiry Name: COLE WILCOX : [address]: Patel Salinas MD Acct: [id number] Unit: [id number] AGE: 67 Location: [facility] Re09/17/13 SEX: F Status: DEP ER SPEC: [id number] ROSAMARIA: 09/17/[address] [facility] [address]: Patel Salinas MD REQ: [id number] RECD: 09/17/13 STATUS: JAZIEL MCMILLAN DR: Irvin Stanley MD _ SOURCE: URINE SPDESC: ORDERED: Urine Culture Procedure Result Verified Site Urine Culture Final 09/19/13- 1108 ML Organism 1 ESCHERICHIA COLI [place] Count >100,000 (Many) CFU/ML 1. ESCHERICHIA COLI M.I.C. RX --------- ------ Ampicillin <=2 S Cefazolin <=4 S Cefepime <=1 S Ceftriaxone <=1 S Ciprofloxacin <=0.25 S Gentamicin <=1 S Imipenem <=0.25 S Levofloxacin <=0.12 S Meropenem <=0.25 S Nitrofurantoin <=16 S Tetracycline <=1 S Pipercillin/Tazobactam <=4 S Trimethoprim/Sulfamethoxazole <=20 S Amoxicillin/Clavulanic Acid <=2 S Aztreonam <=1 S Contact the Microbiology Department for any additional antibiotic reporting. END OF REPORT * ML=Testing performed at Main Lab DEPARTMENT OF PATHOLOGY, [address] [place] [address] Roni Dey M.D. Director [facility] Permit #[id number] ---- RUN DATE: 01/07/12 [facility] NMI LIVE PAGE 1 RUN TIME: 1309 Specimen Inquiry RUN USER: INTERFACE -- Name: SYL WILCOXDITH Status: REG REF Re01/06/12 Age/Sex: 66/F Unit#: [id number] Location: [address] [place] [address].O.B. : [birth year] -- Specimen: [id number] [id number] Spec Date:01/06/12- [facility] Dr: Aniket lopez MD Spec Type: SURGICAL P Received:01/06/12-1504 Copies to: Irvin ramirez MD SPECIMEN 1) CECAL BIOPSY 2) RIGHT COLON ASCENDING COLON BIOPSY 3) RIGHT COLON POLYP 4) TRANSVERSE COLON BIOPSIES 5) DESCENDING COLON BIOPSIES 6) SIGMOID COLON POLYPS 7) RECTAL BIOPSIES HISTORY POST-OP DIAGNOSIS: Colonoscopy into cecum, prep good; smal right colon po lyp removed otherwise normal. No active colitis/proctitis; surveillance biopsied ob tained CLINICAL INFORMATION: Ulcerative proctitis; history of polyps GROSS DESCRIPTION 1) The specimen is received in formalin labelled Cole Wilcox, Cecal Biopsy, and consists of three fragments of yellow tissue measuring in aggregate 0.9 x 0.4 x 0.3 cm. Submitted entirely, one cassette labelled 1. 2) The specimen is received in formalin labelled [facility], Biopsy Ascending Colon, and consists of four fragments of yellow tissue measuring in aggregate 0.8 x 0.8 x 0.3 cm. Submitted entirely, one cassette labelled 2. 3) The specimen is received in formalin labelled [facility], Right Colon Polyp, and consists of two fragments of yellow tissue measuring in aggregate 0.6 x 0.4 x 0.2 cm. Submitted entirely, one cassette labelled 3. 4) The specimen is received in formalin labelled [facility], Transverse Colon Biopsy, and consists of four fragments of yellow-brown tissue each measuring 0.2 x 0.2 x 0.2 cm. Submitted entirely, one cassette labelled 4. 5) The specimen is received in formalin labelled [facility], Biopsy Descending Colon, and consists of three fragments of brown tissue measuring in aggregate 0.7 x 0.7 x 0.3 cm. Submitted entirely, one cassette labelled 5. 6) The specimen is received in formalin labelled [facility], Biopsy Sigmoid Colon Polyp, and consists of three fragments of brown tissue measuring in aggregate 0.8 x 0.8 x 0.2 cm. Submitted entirely, one cassette labelled 6. -- DEPARTMENT OF PATHOLOGY, [address] [place] [address] [facility] Permit #[id number] Roni Dey M.D. Director Inna Hughes M.D. Sales Record Clerk Dir cristina -- -- RUN DATE: 01/07/12 [facility] NMI LIVE PAGE 2 RUN TIME: 1309 Specimen Inquiry RUN USER: INTERFACE -- Name: COLE WILCOX Status: REG REF Re01/06/12 Age/Sex: 66/F Unit#: [id number] Location: [address] [place] [address]. : [birth year] -- -- CONTINUED -- GROSS DESCRIPTION (Continued) 7) The specimen is received in formalin labelled Cole Wilcox, Rectal Biopsy, and consists of three fragments of brown tissue each measuring 0.3 x 0.3 x 0.2 cm. Submitted entirely, one cassette labelled 7. DIAGNOSIS 1) Cecum, biopsy: Large bowel mucosa fragments with no significant pathologic changes. 2) Right ascending colon, biopsy: Fragments of large bowel mucosa with no significant pathologic changes. 3) Right colon, biopsy: A. Tubular adenoma. B. No high grade dysplasia or malignancy. 4) Transverse colon, biopsy: Fragments of large bowel mucosa with no significant pathologic changes. 5) Descending colon, biopsy: Fragments of large bowel mucosa with focal crypt damage with muciphage collection and mild, non-specific increased number of inflammatory cells within the lamina propria. 6) Colon, sigmoid, biopsy: Fragments of large bowel mucosa with focal crypt damage with muciphage collection and mild, non-specific increased number of inflammatory cells within the lamina propria. 7) Rectum, biopsy: Fragments of large bowel mucosa with focal, mild architectural changes, crypt damage and increase, non-specific increased number of inflammatory cells within the lamina propria (see comment). COMMENT No active colitis is seen in any of the biopsies submitted. No dysplasia is seen in any of the biopsies submitted. -- DEPARTMENT OF PATHOLOGY, [address] [place] [address] [facility] Permit #[id number] Sharon Greenberg M.D. Assistant Dir ector -- -- RUN DATE: 01/07/12 [facility] NMI LIVE PAGE 3 RUN TIME: 1309 Specimen Inquiry RUN USER: INTERFACE -- Name: COLE WILCOX Status: REG REF Re01/06/12 Age/Sex: 66/F Unit#: [id number] Location: [address] [place] [address].O.B. : 45 -- -- CONTINUED -- Signed Electronically by: INNA [place] 01/07/12 1309 -- -- DEPARTMENT OF PATHOLOGY, [address] [place] [address] [facility] Permit #[id number] Roni Dey M.D. Director Inna Hughes M.D. Sales Record Clerk Dir cristina -- 14 CHOLESTEROL INTERPRETATION: Desirable: Less than 200 MG/DL Borderline-High Risk: 200-239 MG/DL High-Risk: 240 MG/DL and over 15 HDL INTERPRETATION: Undesirable: High Risk: Less than 40 MG/DL Desirable: Low Risk: Greater than 60 MG/DL 16 LDL INTERPRETATION: Low Risk Optimal Level: LDL Less than 100 MG/DL Near or Above Optimal: LDL 100-129 MG/DL Borderline High Risk: LDL 130-159 MG/DL High Risk: LDL 160-189 MG/DL Very High Risk: LDL Greater than 189 MG/DL 17 BETA STREP GROUP F M^MANY^QTY 18 M^MANY^QTY 19 CHOLESTEROL INTERPRETATION: Desirable: Less than 200 MG/DL Borderline-High Risk: 200-239 MG/DL High-Risk: 240 MG/DL and over 20 HDL INTERPRETATION: Undesirable: High Risk: Less than 40 MG/DL Desirable: Low Risk: Greater than 60 MG/DL 21 LDL INTERPRETATION: Low Risk Optimal Level: LDL Less than 100 MG/DL Near or Above Optimal: LDL 100-129 MG/DL Borderline High Risk: LDL 130-159 MG/DL High Risk: LDL 160-189 MG/DL Very High Risk: LDL Greater than 189 MG/DL 22 Anion gap measurement may be of limited value in the presence of any alkalosis, especially in a combined acid base disorder. . 23 Because ethnic data is not always readily [...] 15-29 5 Kidney failure <15 (or dialysis) 24 Anion gap measurement may be of limited value in the presence of any alkalosis, especially in a combined acid base disorder. . 25 Note change in reference range as of 04/18/08. The change was based on recommendations from the [place] [employer]. 26 Please note change in reference range effective 08 . 27 Because ethnic data is not always readily [...] 15-29 5 Kidney failure <15 (or dialysis) 28 ---- RUN DATE: 01/06/09 [facility] NMI LIVE PAGE 1 RUN TIME: 1557 Specimen Inquiry RUN USER: INTERFACE -- [id number] Status: REG REF Re01/02/09 Age/Sex: 63/F Unit#: [id number] Location: [address] [place], [place] [address]O.B. : 45 -- Specimen: [id number] SOUT Spec Date: 01/02/[address]: Aniket way MD Spec Type: SURGICAL P Received: 01/03/09 Copies to: Irvin ramirez MD SPECIMEN 1) CECUM RIGHT COLON BIOPSIES 2) TRANSVERSE COLON BIOPSIES 3) DESCENDING COLON BIOPSIES 4) SIGMOID BIOPSIES 5) RECTUM BIOPSIES 6) BIOPSY TRANSVERSE POLYP 7) BIOPSY DESCENDING COLON POLYP HISTORY POST-OP DIAGNOSIS: Two polyps removed, no active colitis CLINICAL INFORMATION: Follow-up for ulcerative proctitis GROSS DESCRIPTION 1) The specimen is received in formalin labelled Cole Perezangelica, Right Cecum, and consists of multiple, coyle, soft tissue fragments measuring 0.6 x 0.3 x 0.2 cm. Submitted entirely, one cassette. 2) The specimen is received in formalin labelled Cole Perezangelica, Transverse Colon Biopsy, and consists of multiple coyle, soft tissue fragments measuring 0.5 x 0.3 x 0.2 cm. Submitted entirely, one cassette. 3) The specimen is received in formalin labelled Cole Brenden, Descending Colon, and consists of multiple coyle, soft tissue fragments measuring 0.4 x 0.3 x 0.2 cm. Submitted entirely, one cassette. 4) The specimen is received in formalin labelled [facility], Sigmoid Biopsies, and consists of multiple, coyle, soft tissue fragments measuring 0.4 x 0.3 x 0.2 cm. Submitted entirely, one cassette. 5) The specimen is received in formalin labelled Cole Kusch, Rectum, and consists of multiple, coyle, soft tissue fragments measuring 0.4 x 0.3 x 0.2 cm. Submitted entirely, one cassette. 6) The specimen is received in formalin labelled [facility], Transverse Polyp, and consists of coyle, soft tissue fragments measuring 0.6 x 0.6 x 0.2 cm. in aggregate. Submitted entirely, one cassette. 7) The specimen is received in formalin labelled [facility], Descending Colon Polyp, and consists of two, coyle, soft tissue fragments measuring 0.3 x 0.2 x 0.1 cm. Submitted entirely, one cassette. -- DEPARTMENT OF PATHOLOGY, [address] [place] [address] [facility] Permit #[id number] Sharon Greenberg M.D. Sales Record Clerk Dir evans -- -- RUN DATE: 01/06/09 [facility] NMI LIVE PAGE 2 RUN TIME: 1557 Specimen Inquiry RUN USER: INTERFACE -- Name: COLE WILCOX Status: REG REF Re01/02/09 Age/Sex: 63/F Unit#: [id number] Location: [address] [place], [place] [address]B. : 45 -- -- CONTINUED -- DIAGNOSIS 1. Colon, right, biopsies: Hyperplastic change. 2. Colon, transverse, biopsies: Focal hyperplastic change. 3. Colon, descending, biopsies: A. Tubular adenoma. B. No high grade dysplasia or malignancy. 4. Colon, sigmoid, biopsies: Hyperplastic change. 5. Colon, rectum, biopsies: A. Hyperplastic change. B. No evidence of chronic inflammatory bowel process identified. 6. Colon, transverse, biopsies: Inflamed hyperplastic polyp. 7. Colon, descending, biopsies: Hyperplastic change. Signed Electronically by: RONI DEY MD 01/06/09 1557 -- -- DEPARTMENT OF PATHOLOGY, [address] [place] [address] [facility] Permit #[id number] Roni Dey M.D. Director Inna Hughes M.D. Sales Record Clerk Dir cristina -- 29 PATIENT MAY HAVE RESULTS PER DOCTOR'S AUTHORIZATION. Questions regarding this report should be directed to your doctor. 30 CHOLESTEROL INTERPRETATION: Desirable: Less than 200 MG/DL Borderline-High Risk: 200-239 MG/DL High-Risk: 240 MG/DL and over 31 HDL INTERPRETATION: Undesirable: High Risk: Less than 40 MG/DL Desirable: Low Risk: Greater than 60 MG/DL 32 LDL INTERPRETATION: Low Risk Optimal Level: LDL Less than 100 MG/DL Near or Above Optimal: LDL 100-129 MG/DL Borderline High Risk: LDL 130-159 MG/DL High Risk: LDL 160-189 MG/DL Very High Risk: LDL Greater than 189 MG/DL 33 Anion gap measurement may be of limited value in the presence of any alkalosis, especially in a combined acid base disorder. . 34 Note change in reference range as of 04/18/08. The change was based on recommendations from the [place] [employer]. 35 Please note change in reference range effective 08 . 36 TEST RESULT RETURNED FROM REFERENCE LABORATORY AND HARDCOPY SENT TO PHYSICIAN(S) OFFICE. 37 Not diagnostic. Confirmatory test ordered. Test Performed by: [facility] Dpt of Lab Med and Pathology [address] [place] [id number] Band Shover: Franck Ayala III, M.D. 38 FINAL: NO GROWTH DAY 2 39 NBO^NO ORGANISMS SEEN^SM R^RARE^WBC Procedures Date CPT Code Description Status Comment 07/12/201798638 THR Total Hip Replacement Completed 07/12/2017 58732 THR Total Hip Replacement Completed 10/24/2013 Mammogram Completed 01/06/2012 Colonoscopy Completed 10/18/2011 84965 Rad Shoulder Comp, Min. 2 Views Completed 10/04/2011 91483 Rad Shoulder Comp, Min. 2 Views Completed 09/20/2011 15307 Rad Shoulder Comp, Min. 2 Views Completed 09/20/2011 43582 Closed TX Of Greater Humeral Tuberosity Completed FX;W/O Manipulation 09/20/2011 77481 Closed trtmt prox humeral fx Completed 10/26/2010 Bone Mineral Density Test Completed 10/26/2010 Mammogram Completed 01/27/2009 Colonoscopy Completed repeat 3 yrs 01/02/2009 Colonoscopy Completed 09/23/2008 Mammogram Completed Encounters Type Date Location Provider CPT E/M Dx Office Visit 2017 [facility] Res[facility] M.D. 84393 M25.552 8:00a [facility] M16.12 Office Visit 06/24/2017 10:00a [facility] Viv[facility] Res[facility] M.D. 34222 M25.551 [facility] M16.11 Office Visit 10/11/2014 10:00a [facility] Irvin Stanley, 07176 V70.0 - Ángela Montalvo M.D.,FACP 272.0 V76.10 790.21 Office Visit 09/24/2014 9:30a [facility] [place] [address] 786.2 Leonila 465.8 465.9 Office Visit 06/17/2014 3:00p [facility] Irvin Stanley, 34027 V65.49 - Leonila Herrera,FACP v05.3 Office Visit 04/09/2014 8:30a [facility], [address] 790.21 - Leonila Herrera,FACP 272.0 729.5 Office Visit 10/10/2013 1:20p [facility], [address]32 V70.0 - Leonila Herrera,FACP 625.6 296.32 790.21 272.0 627.2 V73.99 V76.10 Office Visit 10/21/2011 8:50a [facility], 82324 V70.0 - Leonila Herrera,FACP 272.0 V10.82 V76.10 812.03 V03.82 Office Visit 09/20/2011 10:15a [facility] Gisele Ceballos, 29220 726.19 - Leonila Herrera v04.81 Office Visit 04/28/2011 11:00a DO Not Use [employer] At [facility], 50521 272.0 [facility] Sharon,FACP V10.82 Office Visit 02/16/2011 1:40p DO Not Use [employer] Analyst At [facility], [address] 462 [facility] Sharon,FACP Office Visit 10/20/2010 9:40a DO Not Use [employer] Analyst At [facility], 43674 V70.0 [facility] 278.02 238.2 110.1 788.31 V76.10 V82.81 374.9 Office Visit 07/08/2010 11:40a DO Not Use [employer] And Beverage Analyst At [facility], 07874 381.00 [facility] M.DMaggy Office Visit 07/31/2009 1:00p DO Not Use [employer] Analyst At [facility], 86941 556.2 [facility].Jluis,FACP 790.21 V76.10 V16.3 354.0 Office Visit 01/31/2009 11:30a DO Not Use [employer] [place] [address] 786.2 [facility] Office Visit 07/23/2008 2:00p DO Not Use [employer] Analyst At [facility], 11861 V70.0 [facility],FACP 556.2 296.32 V76.10 V04.81 v04.81 V05.8 Office Visit 02/19/2008 2:20p DO Not Use [employer] Analyst At [facility], 29213 682.6 [facility],FACP 041.11 Office Visit 02/12/2008 3:40p DO Not Use [employer] Analyst At [facility], 47774 556.2 [facility],FACP 296.32 599.7 V70.0 Plan of Care Future Appointment(s):01/03/2018 12:30 pm - Vivienne Res[facility] M.[facility]01/13/2018 8:00 am - Vivienne Resendez M.D. at [facility]12/21/2017 - Vivienne Resendez M.D.M25.552 Pain in left hipFollow up:Follow up: 2 weeks after rvyfafuD11.12 Unilateral primary osteoarthritis, left hip
--- OUTSIDE RECORDS SUMMARY | 2018-01-03 13:36 | XMS REPORT ---
:1945 External Reference #:[id number] Author Organization [facility] Address [address] [place] [phone] Phone [phone] Care Team Providers Name Role Phone Kaylee Montano MD Care Team Information Biometrics Instructor Unavailable Payers Type Date Identification Numbers Payment Provider Subscriber Commercial Expires: Policy Number: CPHL [employer] Rajesh Lowe Khris 2016 [id number] [place] PayID: [id number] [address] [place] [address] Commercial Effective: Policy Number: Aetna-PFFS Elsie Live 2016 [id number] Medicare Plan Franmireyazeb PayID: [id number] [address] [place] [address] Problems Date Description Provider Status Onset: 05/08/2015 Mixed hyperlipidemia Kaylee Montano MD Active Onset: 05/08/2015 Vitamin D deficiency Kaylee Montano MD Active Onset: 10/16/2015 Vitamin D deficiency Kaylee Montano MD Active Onset: 01/20/2016 Impaired fasting glycaemia Kaylee Montano MD Active Onset: 11/09/2016 Moderate recurrent major depression Kaylee Montano MD Active Onset: 2017 Atrophic vaginitis Kaylee Montano MD Active Onset: 05/08/2015 Depressive disorder Kaylee Montano MD Inactive Inactive: 11/09/2016 Family History Date Family Member(s) Problem(s) Comments [...] Lives With Spouse 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 ETOH Use Currently consumes alcohol 1 glass [...] 42.50 use 08/30 N95.2 M 0gm applicator Govind Montano intervaginally twice a week at bedtime Sertraline HCL 01/20 Active Tablets 100mg 30tab take 1 tablet F33.1 s by mouth daily Govind Montano for anxiety and depression Vitamin D3 10/25 Active Capsules 2000Unit 1 by mouth E55.9 every day Govind Montano MD Trimethoprim 09/21 Hx Tablets 100mg 20tab 1 take by mouth R35.0 s tablet every 12 A Charmaine, - [...] 3mg 780.52 Sean D 05/08/2015 orally at [place], night as [employer] needed for insomnia. take 1 hour prior [...] CPT Code Status Date Vaccine Lot # [id number] Given 05/11/2017 Influenza Vaccine Not Specified Administered Age 3 And Older [address] Given 05/11/2017 Influenza Virus Vaccine Split Virus [id number] Use For Individual 3Yr Older 69[address] Given 05/28/2015 Tdap-Tetanus, Diphtheria TDap [id number] Toxoids/Acellular Pertussis Vaccine 7+ 71430 Given 05/08/2015 Pneumococcal Vaccine 2Yrs Or Older Pneumococcal [id number] 81973 Given 05/08/2015 Influenza Virus Split 3 Yrs And Above [id number] For Intramuscular Use 69312 Given 05/29/2014 Influenza Virus Split 3 Yrs And Above For Intramuscular Use Vital Signs Date Vital Result Comment 11/30/2017 Body Temperature 98.0 F 09/21/2017 Body [...] Test Date Test Result H/L Range Note Ua Routine 11/30/2017 Ua Specific [place] 1.010 Ua PH 6.5 Ua Color Yellow Ua Appera Clear Ua WBC + Ua Protein - Ua Glucose - Ua Ketones - Ua Bilirubin - Ua Urobilinogen - Ua Nitrite - Ua Occult Blood - Laboratory test finding 11/30/2017 Urine Culture And SEE RESULT BELOW 1 Sensitivities Xray 10/14/2017 Mammography, Screening, Normal Bilateral Xray 10/06/2017 Urinary Bladder Residual 14ml post voidal Laboratory test finding 09/21/2017 Urine Culture And SEE RESULT BELOW 2 Sensitivities Ua Routine 09/21/2017 Ua Specific [place] 1.025 Ua PH 5 Ua Color Dark yellow Ua Appera Clear Ua WBC + Ua Protein - Ua Glucose - Ua Ketones - Ua Bilirubin - Ua Urobilinogen - Ua Nitrite - Ua Occult Blood - Order 06/28/2017 EKG Normal Laboratory test finding 06/16/2017 Rheumatoid Factor <15 IU/mL <15 3 Uric Acid 4.6 mg/dL 2.3-6.6 Lyme Western Blot 06/16/2017 Lyme Disease IgG Ab WB Negative Negative Lyme Disease IgG Bands Present p23, kDa Lyme Disease IgM Ab WB Negative Negative Lyme Disease IgM Bands Present p23, kDa Lyme Disease Interpretation See Comment 4 Laboratory test finding 06/16/2017 C Reactive Protein 2.48 mg/L < 5.00 5 Erythrocyte Sed Rate 13 mm/Hr 0-40 CBC Auto Diff 06/16/2017 White Blood Count [...] 0-2 Nucleated Red Blood Cells % 0.1 Xray 06/15/2017 MRI, Lower Extremity, Any Joint; [...] Egfr Non- 72.8 >60 Egfr 93.6 >60 6 Basic Metabolic Panel 05/04/2017 Sodium 134 mmol/L 133-145 Potassium 4.5 mmol/L 3.5-5.0 Chloride 102 mmol/L 101-111 Co2 Carbon Dioxide 25 mmol/L 22-32 Anion Gap 7 mmol/L 2-11 Glucose 101 mg/dL 70-140 Blood Urea Nitrogen 18 mg/dL 6-24 Creatinine 0.79 mg/dL 0.51-0.95 BUN/Creatinine Ratio 22.8 High 8-20 Calcium 9.3 mg/dL 8.6-10.3 Egfr Non- 71.7 >60 Egfr 92.3 >60 7 Laboratory test 05/04/2017 Hemoglobin A1c (Glyco 5.7 % Less than 6.0 8 finding HGB) Xray 05/04/2017 Hips, Bilateral, Min. Sever Rt, mild Of 2 Veiw/Hip leftA Laboratory test 03/28/2017 Urine Culture And SEE RESULT 9 finding Sensitivities BELOW Ua Routine 03/28/2017 Ua Specific [place] 1.010 Ua PH 5 Ua Color Dark [...] Hydroxy 39.1 Ua Routine 01/14/2017 Ua Specific [place] 1.018 Ua PH 6.0 Ua Color Yellow [...] Egfr Non- 70.9 >60 Egfr 91.2 >60 10 Lipid Profile (Trig/Chol/HDL) 01/13/2016 Triglycerides 88 mg/dL <150 11 Cholesterol 254 mg/dL High <200 12 HDL Cholesterol 80.4 mg/dL >35 13 LDL Cholesterol 156 mg/dL <160 14 Laboratory test finding 01/13/2016 Hemoglobin A1c (Glyco 5.6 % Less than 6.0 15 HGB) Vitamin D Total 25(Oh) 39.3 ng/mL 30-50 Ua Routine 01/05/2016 Ua Specific [place] 1.010 Ua PH 6.0 Ua Color Light yellow Ua Appera Cloudy Ua WBC ++ Ua Protein - Ua Glucose - Ua Ketones + Ua Bilirubin - Ua Urobilinogen - Ua Nitrite + Ua Occult Blood + Laboratory test finding 10/21/2015 Vitamin D Total 25(Oh) 49.8 ng/mL 30- 50 Laboratory test finding 05/06/2015 Vitamin D Total 25(Oh) 36.9 ng/mL 30- 50 16, 17 Basic Metabolic Panel 05/06/2015 Sodium 134 mmol/L 133-145 16 Potassium 4.4 mmol/L 3.5-5.0 16 Chloride 103 mmol/L 101-111 16 Co2 Carbon Dioxide 23 mmol/L 22-32 16 Anion Gap 8 mmol/L 2-11 16 Glucose 101 mg/dL High 70-100 16 Blood Urea Nitrogen 15 mg/dL 6-24 16 Creatinine 0.86 mg/dL 0.51-0.95 16 BUN/Creatinine Ratio 17.4 8-20 16 Calcium 9.3 mg/dL 8.6-10.3 16 Egfr Non- 65.4 >60 16 Egfr 84.1 >60 16, 18 Lipid Profile (Trig/Chol/HDL) 05/06/2015 Triglycerides 84 mg/dL 16, 19 Cholesterol 252 mg/dL 16, 20 HDL Cholesterol 81.5 mg/dL 16, 21 LDL Cholesterol 154 mg/dL 16, 22 Urinalysis Profile 01/17/2015 Urine Color Yellow 23 Urine Appearance Clear 23 Urine Specific [place] 1.023 1.010-1.030 23 Urine pH 6.0 5-9 23 Urine Urobilinogen Negative Negative 23 Urine Ketones Negative Negative 23 Urine Protein Negative Negative 23 Urine Leukocytes Negative Negative 23 Urine Blood Negative Negative 23 Urine Nitrite Negative Negative 23 Urine Bilirubin Negative Negative 23 Urine Glucose Negative Negative 23 Laboratory test finding 01/17/2015 Vitamin D Total 25(Oh) 29.7 ng/mL Low 30-50 23, 24 Hemoglobin A1c 5.4 % Less than 6.0 23, 25 Insulin Level 5.3 mcIU/mL 2.6 - 24.9 23, 26 Lipid Profile (Trig/Chol/HDL) 01/17/2015 Triglycerides 85 mg/dL 23, 27 Cholesterol 239 mg/dL 23, 28 HDL Cholesterol 72.9 mg/dL 23, 29 LDL Cholesterol 149 mg/dL 23, 30 Comp Metabolic Panel 01/17/2015 Sodium 135 mmol/L 133-145 23 Potassium 4.4 mmol/L 3.5-5.0 23 Chloride 106 mmol/L 101-111 23 Co2 Carbon Dioxide 24 mmol/L 22-32 23 Anion Gap 5 mmol/L 2-11 23 Glucose 104 mg/dL High 70-100 23 Blood Urea Nitrogen 14 mg/dL 6-24 23 Creatinine 0.86 mg/dL 0.51-0.95 23 BUN/Creatinine Ratio 16.3 8-20 23 Calcium 9.3 mg/dL 8.6-10.3 23 Total Protein 6.6 g/dL 6.4-8.9 23 Albumin 4.2 g/dL 3.2-5.2 23 Globulin 2.4 g/dL 2-4 23 Albumin/Globulin Ratio 1.8 1-3 23 Total Bilirubin 0.60 mg/dL 0.2-1.0 23 Alkaline Phosphatase 90 U/L 34-104 23 Alt 9 U/L 7-52 23 Ast 15 U/L 13-39 23 Egfr Non- 65.4 >60 23 Egfr 84.1 >60 23, 31 CBC No Diff 01/17/2015 White Blood Count 5.5 10^3/uL 4.8-10.8 23 Red Blood Count 4.70 10^6/uL 4.0-5.4 23 Hemoglobin 15.2 g/dL 12.0-16.0 23 Hematocrit 44 % 35-47 23 Mean Corpuscular Volume 93 fL 80-97 23 Mean Corpuscular Hemoglobin 32 pg High 27-31 23 Mean Corpuscular HGB Conc 35 g/dL 31-36 23 Red Cell Distribution Width 14 % 10.5-15 23 Platelet Count 293 10^3/uL 150-450 23 Mean Platelet Volume 8 um3 7.4-10.4 23 Xray 01/13/2015 Mammography, Screening, Bilateral Negative 1 SEE RESULT BELOW Name: ELSIE KONG : [address]: Kaylee Montano MD Acct: [id number] Unit: [id number] AGE: 71 Location: [facility] Re11/30/17 SEX: F Status: REG REF SPEC: [id number] [place]AMAR[place]: 11/30/17 [facility] DR: Kaylee Montano MD REQ: [id number] RECD: 11/30/17 STATUS: COMP _ SOURCE: URINE SPDESC: ORDERED: Urine Culture COMMENTS: FASTING Procedure Result Reported Site Urine Culture Final 12/02/17- 0816 ML Organism 1 ESCHERICHIA COLI [place] Count >100,000 (Many) CFU/ML 1. ESCHERICHIA COLI [...] Department for any additional antibiotic reporting. * - [facility] . END OF REPORT DEPARTMENT OF PATHOLOGY, [address] [place] [address] Roni Dey M.D. Director [facility] # [id number] 2 SEE RESULT BELOW Name: ELSIE KONG : [address]: Kaylee Montano MD Acct: [id number] Unit: [id number] AGE: 71 Location: [facility] Re09/21/17 SEX: F Status: REG REF SPEC: [id number] [place]AMARIA: 09/21/17-[facility]: Kaylee Montano MD REQ: [id number] RECD: 09/21/171151 STATUS: COMP _ SOURCE: URINE SPDESC: ORDERED: Urine Culture COMMENTS: [id number] QUERIES: Urine Source: Random Procedure Result Reported Site Urine Culture Final 09/23/17727 ML Organism 1 ESCHERICHIA COLI [place] Count 25-50,000 (Moderate) CFU/ML 1. ESCHERICHIA COLI [...] performed at Main Lab DEPARTMENT OF PATHOLOGY, [address] [place] [address] Roni Dey M.D. Director [facility] # [id number] 3 Test Performed by: [facility] [place] [id number] 4 Specific serologic response to B. burgdorferi infection [...] screening test (e.g., EIA). Test Performed by: [facility] [address] [place] [address] 5 Acute inflammation: >10.00 6 Because ethnic data is not always readily [...] 15-29 5 Kidney failure <15 (or dialysis) 7 Because ethnic data is not always [...] 5 Kidney failure <15 (or dialysis) 8 Therapeutic target for the treatment of diabetes Mellitus patients is <7% HBA1C, and in selective patients <6.0%.Please refer to [place] [employer] Diabetic care guidelines for further information. 9 SEE RESULT BELOW Name: ELSIE KONG : [address]: Kaylee Montano MD Acct: [id number] Unit: [id number] AGE: 71 Location: [facility] Re03/28/17 SEX: F Status: REG REF SPEC: [id number] ROSAMARIA: 03/28/17 [facility] DR: Kaylee Montano MD REQ: [id number] RECD: 03/28/17 STATUS: COMP _ [facility]: Urine Culture COMMENTS: [id number] Urine Source: Random Procedure Result Reported Site Urine Culture Final 03/29/17- 1226 ML Organism 1 STAPHYLOCOCCUS SAPROPHYTICUS Routine sensitivity testing of urine isolates of S. saprophyticus is not advised, because infections respond to concentrations achieved in urine of antimicrobial agents commonly used to treat acute, uncomplicated urinary tract infections (e.g. nitrofurantoin, trimethoprim+/- sulfamethoxazole, or a fluoroquinolone). NCC August 2001 * ML - MAIN LAB ([facility]) . END OF REPORT * ML=Testing performed at Main Lab DEPARTMENT OF PATHOLOGY, [address] [place] [id number] Roni Dey M.D. Director [facility] # [id number] 10 Because ethnic data is not always readily [...] 15-29 5 Kidney failure <15 (or dialysis) 11 Desirable <150 Borderline high 150-199 High 200-499 Very High >500 12 Desirable <200 Borderline high 200-239 High >239 13 Low <40 Desirable: 40-60 High: >60 14 Desirable: <100 mg/dL Near Optimal: 100-129 mg/dL Borderline High: 130-159 mg/dL High: 160-189 mg/dL Very High: >189 mg/dL 15 Therapeutic target for the treatment of diabetes Mellitus patients is <7% HBA1C, and in selective patients <6.0%.Please refer to [place] [employer] Diabetic care guidelines for further information. 16 PT IS FASTING 17 PT IS FASTING 18 Because ethnic data is not always [...] 5 Kidney failure <15 (or dialysis) 19 Desirable <150 Borderline high 150-199 High 200-499 Very High >500 20 Desirable <200 Borderline high 200-239 High >239 21 Low <40 Desirable: 40-60 High: >60 22 Desirable: <100 mg/dL Near Optimal: 100-129 mg/dL Borderline High: 130-159 mg/dL High: 160-189 mg/dL Very High: >189 mg/dL 23 FASTING 24 FASTING 25 Therapeutic target for the treatment of diabetes Mellitus patients is <7% HBA1C, and in selective patients <6.0%.Please refer to [place] [employer] Diabetic care guidelines for further information. 26 Test Performed by: [place] [address] Statistical Methods Teacher: José Tam II, M.D., Ph.D. 27 Desirable <150 Borderline high 150-199 High 200-499 Very High >500 28 Desirable <200 Borderline high 200-239 High >239 29 Low <40 Desirable: 40-60 High: >60 30 Desirable: <100 mg/dL Near Optimal: 100-129 mg/dL Borderline High: 130-159 mg/dL High: 160-189 mg/dL Very High: >189 mg/dL 31 Because ethnic data is not always readily [...] Procedures Date CPT Code Description Status Comment 10/14/2017 Mammogram Completed 10/13/2017 Mammogram Completed Normal 06/28/2017 87053 Electrocardiogram Complete Completed 02/24/2017 Colonoscopy Completed 02/20/2017 Colonoscopy Completed Sessile adenomatous polyp, following with GI Q 5yrs 01/19/2016 Mammogram Completed 10/16/2015 90081 Remove impacted cerumen, 1 or Completed both ears 10/16/2015 73029 Remove impacted cerumen, 1 or Completed both ears 01/17/2015 Mammogram Completed 01/08/2015 Mammogram Completed 08/29/2012 Bone Mineral Density Test Completed "Normal" Encounters Type Date Location Provider CPT E/M Dx Office Visit 2017 10:00a [place] [address] N95.2 Office Visit 11/30/2017 9:20a [place] [address] N39.0 R35.0 Office Visit 11/02/2017 2:00p [place] [address] N39.0 R35.0 Office Visit 09/21/2017 10:20a [place] [address] R35.0 R39.15 Office Visit 06/28/2017 11:40a [place] [address] Z01.818 M25.551 F33.1 E78.2 Office Visit 06/16/2017 1:20p [place] [address] M25.551 Office Visit 06/09/2017 11:00a [place] [address] M25.551 M16.0 Office Visit 05/11/2017 12:00p [place] [address] M16.0 M25.551 Z79.1 Z23 Office Visit 05/04/2017 11:20a [place] [address] M25.551 G47.00 F33.1 R73.01 Office Visit 03/28/2017 10:40a [place] [address] N39.0 Office Visit 01/20/2017 11:20a [place] [address] Z00.01 R73.01 E78.2 E55.9 F33.1 Z12.39 Office Visit 11/09/2016 11:20a [place] [address] F33.1 Office Visit 01/05/2016 2:40p [place] [address] N39.0 Office Visit 10/24/2015 12:20p [place] [address] R05 K21.9 Office Visit 10/16/2015 3:40p [place] [address] H81.10 H61.21 H61.22 H61.23 F32.9 E55.9 Office Visit 05/08/2015 10:40a [place] [address] V03.82 V03.82 V04.81 272.2 790.21 268.9 311 780.52 Office Visit 02/05/2015 3:20p Main Office Sean Sandy [facility] [address]207 780.79 719.46 790.21 272.2 780.52 268.9 Office Visit 01/13/2015 3:00p [place] [address] V70.0 V76.19 790.21 Plan of Care Future Appointment(s):12/13/2017 10:00 am - Kaylee Montano MD at Main Qqfyns4702/06/2018 11:20 am - Kaylee Montano MD at Main Upmpdr7712/07/2017 - Kaylee Montano MDN95.2 Postmenopausal atrophic vaginitisNew Medication: Premarin 0.625 mg/GMComments:Admits to dyspareunia and dryness. Treatment options with potential risks, general precautions, follow up recommendations, and alternative treatment options discussed with patient in detail. Patient verbalized understanding. Medications related potential side effects, general precautions, follow up recommendations discussed with patient in detail. Patient verbalized understanding.
--- OUTSIDE RECORDS SUMMARY | 2018-01-03 13:38 | XMS REPORT ---
:1945 External Reference #:[id number] [facility] [address] [address] Phone [phone] Care Team Providers Name Role Phone Kaylee Montano MD Primary Care Physician Unavailable Payers Type Date Identification Numbers Payment Provider Subscriber Medicare Primary Expires: Policy Number: Medicare Cole Live 2017 [id number] Khris PayID: [id number] [address] [place] [address] Medigap Part B Policy Number: [id number] [employer] Medicare Cole Live [employer] Number: [id number] [address] PayID: [id number] [place] [address] Problems Date Description Provider Status Onset: 02/12/2008 [...] Marital Status Lives With Spouse 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 needed for pain Vitamin D-3 Active Tablets 2000Unit 1 po qd Unknown / Sertraline HCL Active Unknown / Cyclobenzaprine 07/25 Hx Tablets 10mg 60tab take 1 tab M25.551 Vivienne s by mouth 2 Mal, - times a day M.D. 10/04 as needed Tramadol HCL 07/23 Hx Tablets 50mg 30tab 1 tab by Vivienne s mouth every Mal, - 8 hours as M.D. 08/18 needed pain /2016 Warfarin Sodium 07/06 Hx Tablets 2mg 90tab take 1-3 Vivienne s tabs by Mal, - mouth at 5pm M.D. 08/18 nightly. not take before surgery. Oxycodone-Acetami 07/06 Hx Tablets 5-325mg 90tab 1-2 tabs by Vivienne vang s mouth every Mal, - 4-6 hours as M.D. 07/24 needed for pain Eq Stool Softener 07/06 Hx Capsules 100mg 90cap take 1-3 Vivienne s tabs daily Mal, - as needed M.D. 08/18 for constipation . Cheratussin ac 09/24 Hx Solution 100-10mg/ 200ml 5-10 786.2 5ML milliliters JANETH Hillman - by mouth 10/11 four times a day as needed Vivotif Karolina 06/17 Hx Capsules 4caps by mouth V65.[address] every other Jluis Stanley, - day for 4 M.D.,[facility] 09/24 doses Atovaquone-Progua 06/17 Hx Tablets 250-100mg 28tab 1 by mouth V65.49 Irvin nil HCL s every day Jluis Stanley, - start 2 days M.D.,[facility] 09/24 prior to exposure and continue for 1 week after trip ended Azithromycin 06/17 Hx Tablets 250mg 6tabs 2 every day V65.49 Irvin for 1 day, Jluis Stanley, - then 1 every M.D.,[facility] Estrace 10/10 Hx Cream 0.1mg/GM 42.5u insert 627.2 nits one-half Jluis Stanley, - applicator M.DMaggy,[facility] 06/17 vaginally twice weekly, also apply around [...] Tablets 333mg 30tab po tid for [address] aiken 10 days Jluis Stanley, - MMaggyD.,FACP 02/16 Robitussin ac 02/16 Hx Solution 6Oz 1-2 tsp po 462 qid prn Sherrill Arauz cough Sharon,[facility] 04/28 Erythromycin Base 02/16 Hx Tablets 250mg 40tab po qid 462 s Sherrill [facility]uz [facility] 04/28 Ciclopirox Nail 10/20 Hx Solution 8% 3bott topical qd 110.1 Lacque les for 6 days, Jluis Stanley, - remove q [facility]luis[facility] 09/20 week, repeat /2011 up to 48 wks Levaquin 07/08 Hx Tablets 750mg 7tabs once daily 381.00 Katelyn Mccartney M.D. 10/20 Levaquin 01/31 Hx Tablets 500mg 10tab 1 po qd x 786.2 s 10days Sherrill Arauz M.D.,[facility] 07/31 Calcium + D 07/23 Hx Tablets 600mg 1 PO qPM Sherrill Arauz [facility] 10/10 Doxycycline 02/[address] 100mg 42cap PO bid for 3 Part s wks Sherrill Arauz M.D.,[facility] 07/23 Detrol LA 02/11 Hx Caps ER 2mg 90cap Take 1 24HR s Capsule Jluis Stanley, - Every M.DMaggy,[facility] 10/10 Fluoxetine HCL Hx Capsules 10mg Alternate days of 10mg Jluis Stanley, - and 20mg qd M.D.,FACP 09/20 Nortriptyline HCL Hx Capsules 50mg 90cap Take 1 s Capsule At Jluis Stanley, - Bedtime [facility]gy[facility] 09/20 Provigil Hx Tablets 100mg ? 30tab 1 po qd Unknown /0000 s - 09/20 Valium Hx Tablets 2mg 6tabs one po two hours before - mri and december 28 repeat q hour prn anxiety Sertraline HCL Hx Tablets 25mg 90tab 3 po qd Unknown /0000 s - 06/17 Vitamin D Hx Tablets 1000Unit 90tab 1 po qd Unknown /0000 s - 10/21 Zyrtec Allergy Hx Tablets 10mg 30tab 1 tab qd prn Unknown /0000 s - 06/17 Dedolor Hx 100mg 1 po bid Unknown /0000 - 10/21 Bupropion HCL ER Hx Tablets 200mg 60tab 1 po in am Unknown /0000 ER 12HR s - 09/05 Probiotic Hx Capsules 14cap 1 by mouth Unknown /0000 s every day - 09/05 Immunizations CPT Code Status Date Vaccine Reaction Lot # [id number] Given 06/17/2014 Hepatitis A Vaccine Adult [id number] Dosage 36960 Given 06/11/2014 Influenza Virus Vaccine, [id number] Quadrivalent, Split, Preservative Free 70201 Given 08/02/2013 Flu Vaccine Split Virus [id number] Preservative Free For Indiv 3Yr Older [id number] Given 06/05/2012 Fluzone Vaccine 99037 Given 10/21/2011 Pneumonia Vaccine [id number] 22591 Given 09/20/2011 Influenza Virus 3Yrs & Over 47191 Given 09/02/2010 Influenza Virus 3Yrs & [id number] Over 54390 Given 06/13/2009 Influenza Virus 3Yrs & Over 47147 Given 06/13/2009 Influenza Virus 3Yrs & [id number] Over 10751 Given 07/23/2008 Zoster (Zostavax) 19324 Given 07/23/2008 Zoster (Zostavax) [id number] 45857 Given 07/23/2008 Influenza Virus 3Yrs & Over 51811 Given 07/23/2008 Influenza Virus 3Yrs & [id number] Over 43686 Given 06/05/2007 Tetanus And Diptheria (Td) Received at For Adult Use Preservative O'Sheas Free Vital Signs Date Vital Result Comment 2017 Height 65 inches 5'5" Weight 160.00 [...] <SEE NOTE> 39 1 RUN DATE: 11/23/14 [facility] LIVE PAGE 1 RUN TIME: [address] [place] [address] Specimen Inquiry Name: COLE WILCOX : [address]: Tawana Nevarez MD Acct: [id number] Unit: [id number] AGE: 68 Location: [facility] Re11/21/14 SEX: F Status: DEP ER SPEC: [id number] ROSAMARIA: 11/21/14-09 [facility] [address]: Tawana Nevarez MD REQ: [id number] RECD: 11/21/14 STATUS: COMP OTHR DR: [facility] Irvin Stanley MD _ SOURCE: URINE SPDESC: ORDERED: Urine Culture Procedure Result Verified Site Urine Culture Final 11/23/14- 910 ML Organism 1 ESBL ESCHERICHIA COLI [place] Count >100,000 (Many) CFU/ML 1. ESBL ESCHERICHIA [...] antibiotic reporting. * ML - MAIN LAB ([facility]) . END OF REPORT * ML=Testing performed at Main Lab DEPARTMENT OF PATHOLOGY, [address] [place] [address] Roni Dey M.D. Director CAROL # [id number] 2 RUN DATE: 07/30/14 [facility] LIVE PAGE 1 RUN TIME: [address] [place] [address] Specimen Inquiry Name: COLE WILCOX : [address]: Tawana Nevarez MD Acct: [id number] Unit: [id number] AGE: 68 Location: [facility] Re07/28/14 SEX: F Status: DEP ER SPEC: [id number] ROSAMARIA: 07/28/14-1106 [facility] [address]: Valarie Wood NP REQ: [id number] RECD: 07/28/14-1223 STATUS: JAZIEL MCMILLAN DR: [facility] Irvin Stanley MD _ SOURCE: URINE SPDESC: ORDERED: Urine Culture Procedure Result Verified Site Urine Culture Final 07/30/14- 0924 ML Organism 1 NORMAL DELMAR [place] Count 10-25,000 (Moderate) CFU/ML END OF REPORT * ML=Testing performed at Main Lab DEPARTMENT OF PATHOLOGY, [employer] [place], [place] [address] Roni Dey M.D. Director [facility] # [id number] 3 PT IS FASTING 4 PT IS [...] PT IS FASTING 12 RUN DATE: 09/19/13 [facility] LIVE PAGE 1 RUN TIME: [address] [place], [place] [address] Specimen Inquiry Name: COLE WILCOX : [address]: Patel Salinas MD Acct: [id number] Unit: [id number] AGE: 67 Location: [facility] Re09/17/13 SEX: F Status: DEP ER SPEC: [id number] ROSAMARIA: 09/17/13-[address] [facility] [address]: Patel Salinas MD REQ: [id number] RECD: 09/17/13 STATUS: JAZIEL MCMILLAN DR: Irvin Stanley MD _ SOURCE: URINE [facility]: ORDERED: Urine Culture Procedure Result Verified Site Urine Culture Final 09/19/13- 1108 ML Organism 1 ESCHERICHIA COLI [place] Count >100,000 (Many) CFU/ML 1. ESCHERICHIA COLI [...] performed at Main Lab DEPARTMENT OF PATHOLOGY, [address] [place] [address] Roni Dey M.D. Director [facility] Permit #[id number] ---- RUN DATE: 01/07/12 [facility] NMI LIVE PAGE 1 RUN TIME: 1309 Specimen Inquiry RUN USER: INTERFACE -- [id number] Status: REG REF Re01/06/12 Age/Sex: 66/F Unit#: [id number] Location: [address] [place] [address]. : [birth year] -- Specimen: [id number] SOUT Spec Date:01/06/12 Dr: Aniket lopez MD Spec Type: SURGICAL P Received:01/06/12150 Copies to: Irvin ramirez MD SPECIMEN 1) [...] is received in formalin labelled Cole Perezangelica, Cecal Biopsy, and consists of three fragments of yellow tissue measuring in aggregate 0.9 x 0.4 x 0.3 cm. Submitted entirely, one cassette labelled 1. 2) The specimen is received in formalin labelled Cole Wilcox, Biopsy Ascending Colon, and consists of four fragments of yellow tissue measuring in aggregate 0.8 x 0.8 x 0.3 cm. Submitted entirely, one cassette labelled 2. 3) The specimen is received in formalin labelled Cole Wilcox, Right Colon Polyp, and consists of two fragments of yellow tissue measuring in aggregate 0.6 x 0.4 x 0.2 cm. Submitted entirely, one cassette labelled 3. 4) The specimen is received in formalin labelled Cole Kusch, Transverse Colon Biopsy, and consists of four fragments of yellow-brown tissue each measuring 0.2 x 0.2 x 0.2 cm. Submitted entirely, one cassette labelled 4. 5) The specimen is received in formalin labelled Cole Kusch, Biopsy Descending Colon, and consists of three fragments of brown tissue measuring in aggregate 0.7 x 0.7 x 0.3 cm. Submitted entirely, one cassette labelled 5. 6) The specimen is received in formalin labelled Cole Kusch, Biopsy Sigmoid Colon Polyp, and consists of three fragments of brown tissue measuring in aggregate 0.8 x 0.8 x 0.2 cm. Submitted entirely, one cassette labelled 6. -- DEPARTMENT OF PATHOLOGY, [address] [place] [address] [facility] Permit #[id number] Sharon Greenberg M.D. Typesetter Perforator Operator cristina -- -- RUN DATE: 01/07/12 [facility] NMI LIVE PAGE 2 RUN TIME: 1309 Specimen Inquiry RUN USER: INTERFACE -- Name: COLE WILCOX Status: REG REF Re01/06/12 Age/Sex: 66/F Unit#: [id number] Location: [address] [place] [address].O.B. : 45 -- -- CONTINUED -- GROSS [...] the biopsies submitted. -- DEPARTMENT OF PATHOLOGY, [address] [place] [address] [facility] Permit #[id number] Sharon Greenberg M.D. Typesetter Perforator Operator cristina -- -- RUN DATE: 01/07/12 [facility] NMI LIVE PAGE 3 RUN TIME: 0912 Specimen Inquiry RUN USER: INTERFACE -- Name: COLE WILCOX Status: REG REF Re01/06/12 Age/Sex: 66/F Unit#: [id number] Location: [facility] : [birth year] -- -- CONTINUED -- Signed Electronically by: INNA HUGHES 01/07/12 1309 -- -- DEPARTMENT OF PATHOLOGY, [address] [place] [address] [facility] Permit #[id number] Roni Dey M.D. Director Inna Hughes M.D. Typesetter Perforator Operator Dir cristina -- 14 CHOLESTEROL INTERPRETATION: Desirable: [...] change was based on recommendations from the [place] [employer]. 26 Please note change in [...] (or dialysis) 28 ---- RUN DATE: 01/06/09 [facility] NMI LIVE PAGE 1 RUN TIME: 1557 Specimen Inquiry RUN USER: INTERFACE -- [facility] [id number] Status: REG REF Re01/02/09 Age/Sex: 63/F Unit#: [id number] Location: [address] [place] [address]. : [birth year] -- Specimen: [id number] SOUT Spec Date: 01/02/[address] [facility] Dr: Aniket way MD Spec Type: SURGICAL [...] The specimen is received in formalin labelled [facility], Right Cecum, and consists of multiple, coyle, soft tissue fragments measuring 0.6 x 0.3 x 0.2 cm. Submitted entirely, one cassette. 2) The specimen is received in formalin labelled [facility], Transverse Colon Biopsy, and consists of multiple coyle, soft tissue fragments measuring 0.5 x 0.3 x 0.2 cm. Submitted entirely, one cassette. 3) The specimen is received in formalin labelled [facility], Descending Colon, and consists of multiple coyle, soft tissue fragments measuring 0.4 x 0.3 x 0.2 cm. Submitted entirely, one cassette. 4) The specimen is received in formalin labelled [facility], Sigmoid Biopsies, and consists of multiple, coyle, soft tissue fragments measuring 0.4 x 0.3 x 0.2 cm. Submitted entirely, one cassette. 5) The specimen is received in formalin labelled [facility], Rectum, and consists of multiple, coyle, soft tissue fragments measuring 0.4 x 0.3 x 0.2 cm. Submitted entirely, one cassette. 6) The specimen is received in formalin labelled Cole Perezsch, Transverse Polyp, and consists of coyle, soft tissue fragments measuring 0.6 x 0.6 x 0.2 cm. in aggregate. Submitted entirely, one cassette. 7) The specimen is received in formalin labelled Cole Perezsch, Descending Colon Polyp, and consists of two, coyle, soft tissue fragments measuring 0.3 x 0.2 x 0.1 cm. Submitted entirely, one cassette. -- DEPARTMENT OF PATHOLOGY, [address] [place] [address] [facility] Permit #[id number] Sharon Greenberg M.D. Typesetter Perforator Operator Dir cristina -- -- RUN DATE: 01/06/09 [facility] NMI LIVE PAGE 2 RUN TIME: 1557 Specimen Inquiry RUN USER: INTERFACE -- Name: COLE WILCOX Status: REG REF Re01/02/09 Age/Sex: 63/F Unit#: [id number] Location: [address] [place] [address].O.B. : 45 -- -- CONTINUED -- DIAGNOSIS [...] 01/06/09 1557 -- -- DEPARTMENT OF PATHOLOGY, [address] [place] [address] [facility] Permit #[id number] Roni Dey M.D. Director Inna Hughes M.D. Typesetter Perforator Operator Dir cristina -- 29 PATIENT MAY HAVE [...] change was based on recommendations from the [place] [employer]. 35 Please note change in reference range effective 08 . 36 TEST RESULT RETURNED FROM REFERENCE LABORATORY AND HARDCOPY SENT TO PHYSICIAN(S) OFFICE. 37 Not diagnostic. Confirmatory test ordered. Test Performed by: [facility] D[facility] of Lab Med and Pathology [address] [place] [address] State Editor: Franck Ayala III, M.D. 38 FINAL: NO GROWTH DAY 2 39 NBO^NO ORGANISMS SEEN^SM R^RARE^WBC Procedures Date CPT Code Description Status Comment 07/12/2017 28889 THR Total Hip Replacement Completed 07/12/2017 40808 THR Total Hip Replacement Completed 10/24/2013 Mammogram Completed 01/06/2012 Colonoscopy Completed 10/18/2011 71109 Rad Shoulder Comp, Min. 2 Views Completed 10/04/2011 05670 Rad Shoulder Comp, Min. 2 Views Completed 09/20/2011 41156 Rad Shoulder Comp, Min. 2 Views Completed 09/20/2011 06318 Closed TX Of Greater Humeral Tuberosity Completed FX;W/O Manipulation 09/20/2011 98705 Closed trtmt prox humeral fx Completed 10/26/2010 Bone Mineral Density Test Completed 10/26/2010 Mammogram Completed 01/27/2009 Colonoscopy Completed repeat 3 yrs 01/02/2009 Colonoscopy Completed 09/23/2008 Mammogram Completed Encounters Type Date Location Provider CPT E/M Dx Office Visit 06/24/2017 [facility] Vivienne Resendez M.D. 78721 M25.551 10:00a Of [facility] M16.11 Office Visit 10/11/2014 10:00a [facility] Irvin Stanley, [address]3085 V70.0 - Ángela Montalvo M.D.,FACP 272.0 V76.10 790.21 Office Visit 09/24/2014 9:30a [facility] - Juan Hillman, JANETH [address]51 786.2 [place] 465.8 465.9 Office Visit 06/17/2014 3:00p [facility] Irvin Stanley, 48244 V65.49 - Leonila Herrera,FACP v05.3 Office Visit 04/09/2014 8:30a [facility] Irvin Stanley, 38390 790.21 - Leonila Herrera,FACP 272.0 729.5 Office Visit 10/10/2013 1:20p [facility] Irvin Stanley, 06945 V70.0 - Leonila Herrera,FACP 625.6 296.32 790.21 272.0 627.2 V73.99 V76.10 Office Visit 10/21/2011 8:50a [facility] Irvin Stanley, 37906 V70.0 [facility] 272.0 V10.82 V76.10 812.03 V03.82 Office Visit 09/20/2011 10:15a [facility] Gisele Ceballos, 62293 726.19 [facility] v[facility].81 Office Visit 04/28/2011 11:00a DO Not Use [facility], [address]126 272.0 [facility] V10.82 Office Visit 02/16/2011 1:40p DO Not Use [facility], [address] 462 [facility] Visit 10/20/2010 9:40a DO Not Use [facility], 07252 V70.0 [facility]FACP 278.02 238.2 110.1 788.31 V76.10 V82.81 374.9 Office Visit 07/08/2010 11:40a DO Not Use [facility], [address]369 381.00 [facility] 07/31/2009 1:00p DO Not Use [facility], 88961 556.2 [facility]FACP 790.21 V76.10 V16.3 354.0 Office Visit 01/31/2009 11:30a DO Not Use [place] [address] 786.2 [facility] Office Visit 07/23/2008 2:00p DO Not Use [facility], 65198 V70.0 [facility] 556.2 296.32 V76.10 V04.81 v04.81 V05.8 Office Visit 02/19/2008 2:20p DO Not Use [facility], 99713 682.6 [facility],FACP 041.11 Office Visit 02/12/2008 3:40p DO Not Use [facility], 53981 556.2 [facility] 296.32 599.7 V70.0 Plan of Care Future Appointment(s):01/13/2018 8:00 am - Vivienne Resendez M.D. at [facility].A.12/21/2017 11:00 am - Vivienne Resendez M.D. at [facility]..12/07/2017 - Vivienne Resendez M.D.M25.552 Pain in left hipFollow up:Follow up: 7-10 days before hwydzbbX90.12 Unilateral primary osteoarthritis , left hip
[2018-01-03] MEDS ORDERED: Famotidine TAB* 20 MG ONE (13:41)
[2018-01-03] MEDS ORDERED: Gabapentin CAP(*) 300 MG ONE (13:41)
[2018-01-03] MEDS ORDERED: Ondansetron ODT TAB* 4 MG ONE (13:41)
[2018-01-03] MEDS ORDERED: Clindamycin 900 MG IVPREMIX(* 900 MG/50 ML SDV IV ONE (13:41)
[2018-01-03] MEDS ORDERED: Bisacodyl SUPP* 10 MG SUPP PR PRN (15:20)
[2018-01-03] MEDS ORDERED: Polyethylene Glycol 3350* 17 GM PACKET PO PRN (15:20)
[2018-01-03] MEDS ORDERED: Ondansetron 40 MG VIAL* 2 MG/ML 20 ML VIAL IV PRN (15:20)
[2018-01-03] MEDS ORDERED: oxyCODONE/Acetamin 5/325 MG* TAB PO PRN (15:20)
[2018-01-03] MEDS ORDERED: diPHENhydraMINE IV* 50 MG/ML 1 ml VIAL (BENADRYL) IV PRN (15:20)
[2018-01-03] MEDS ORDERED: Cyclobenzaprine TAB* 10 MG PO PRN (15:20)
[2018-01-03] MEDS ORDERED: Magnesium Hydroxide LIQ* 30 ML UDC PO PRN (15:20)
[2018-01-03] MEDS ORDERED: Ondansetron TAB* 4 MG PO PRN (15:20)
[2018-01-03] MEDS ORDERED: HYDROmorphone INJ* 2 MG/ML CARPUJECT SYRINGE IV SLOW PU PRN (15:25)
[2018-01-03] MEDS ORDERED: Propofol* 10 MG/ML 20 ML BTL IV PUSH ONE (15:55)
[2018-01-03] MEDS ORDERED: EPHEDrine (Pressors)* 50 MG/ML VIAL ONE (15:55)
[2018-01-03] MEDS ORDERED: Dexamethasone IV* 4 MG/ML 1 ML (4 MG) ONE (15:55)
[2018-01-03] MEDS ORDERED: Phenylephrine INJ* 10 MG/ML 1 ML VIAL (10 MG) ONE (15:56)
[2018-01-03] MEDS ORDERED: Lidocaine 2% PF * 5 ML VIAL ONE (15:56)
[2018-01-03] MEDS ORDERED: Warfarin TAB(*) 6 MG PO ONE (17:00)
--- NOTE | 2018-01-03 17:06 | RAD ---
Indication: LEFT total hip replacement. Comparison: December 30, 2017 Technique: RIGHT lateral decubitus AP LEFT hip 1536 hours Report: LEFT acetabular component in place. LEFT femoral component test fit/reamer device in place. Negative for periprosthetic fracture. IMPRESSION: Intraoperative control film.
[2018-01-03] MEDS ORDERED: ROPIVACAINE 5 MG/ML 30 ML BTL (0.5%) ONE (17:28)
[2018-01-03] MEDS: fentaNYL* 50 MCG/ML 2 ML VIAL (100 MCG VIAL) IV PRN ×3 (18:24→19:38)
--- NOTE | 2018-01-03 19:35 | RAD ---
Indication: Postop LEFT total hip replacement. Comparison: Intraoperative exam of the same day. Technique: AP pelvis and proximal femurs and AP and crosstable lateral views LEFT hip Report: LEFT total hip prosthesis in place with normal alignment. Negative for periprosthetic fracture. Overlying soft tissue edema and gas. RIGHT total hip prosthesis noted. IMPRESSION: Unremarkable immediate postop appearance following LEFT total hip replacement.
[2018-01-03] MEDS: Docusate CAP* 100 MG PO SCH (21:31)
[2018-01-03] MEDS: oxyCODONE/Acetamin 5/325 MG* TAB PO PRN (21:32)
[2018-01-03] MEDS: Magnesium Hydroxide LIQ* 30 ML UDC PO SCH (21:33)
[2018-01-03] MEDS: Clindamycin 600 MG IVPREMIX(* 600 MG/50 ML SDV IV SCH (23:07)
[2018-01-04 06:30] LABS: Hematocrit 32 % (35-47); Hemoglobin 11.2 g/dl (12.0-16.0); Platelet Count 247 10^3/ul (150-450)
[2018-01-04 06:38] LABS: INR 0.98 (0.77-1.02)
[2018-01-04 06:46] LABS: EGFR Non-African American 63.2 (>60)
[2018-01-04] MEDS: oxyCODONE/Acetamin 5/325 MG* TAB PO PRN ×3 (07:12→20:04)
[2018-01-04] MEDS: Clindamycin 600 MG IVPREMIX(* 600 MG/50 ML SDV IV SCH ×2 (07:45→16:18)
[2018-01-04] MEDS: Magnesium Hydroxide LIQ* 30 ML UDC PO SCH ×2 (09:04→20:04)
[2018-01-04] MEDS: Docusate CAP* 100 MG PO SCH ×2 (09:04→20:04)
[2018-01-04] MEDS: oxyCODONE TAB* 5 MG TAB PO PRN ×2 (10:28→15:01)
[2018-01-04] MEDS: traMADol TAB* 50 MG PO PRN ×2 (12:08→18:24)
[2018-01-04] MEDS: Enoxaparin(*) 30 MG/0.3 ML SYR SUBCUT SCH (12:09)
--- NOTE | 2018-01-04 12:39 | PN ---
Progress Note - Progress Note Date of Service: 01/04/18 SOAP: Subjective: []Patient seen at bedside. She is feeling well with no acute complaints. Left hip pain is well controlled. No chest pain, shortness of breath, dizziness, nausea. Objective: [] Vital Signs Temp 99.3 F 01/04/18 11:45 Pulse 114 01/04/18 11:45 Resp 18 01/04/18 12:36 BP 99/43 01/04/18 11:45 Pulse Ox 98 01/04/18 11:45 Intake & Output 01/03/18 01/04/18 01/04/18 18:59 06:59 18:59 Intake Total 1100 900 Output Total 480 1150 Balance 620 -250 Weight 165 lb Intake: IV Fluids 1100 LR 1100 Oral 900 Output: Steiner 450 1150 Residual 30 Steiner 16 Fr 30 Laboratory Last Values Hgb 11.2 g/dl (12.0-16.0) L 01/04/18 06:11 Hct 32 % (35-47) L 01/04/18 06:11 Plt Count 247 10^3/ul (150-450) 01/04/18 06:11 MPV 8.0 um3 (7.4-10.4) 01/04/18 06:11 INR (Anticoag Therapy) 0.98 (0.77-1.02) 01/04/18 06:11 Sodium 132 mmol/L (139-145) L 01/04/18 06:11 Potassium 5.0 mmol/L (3.5-5.0) 01/04/18 06:11 Chloride 102 mmol/L (101-111) 01/04/18 06:11 Carbon Dioxide 26 mmol/L (22-32) 01/04/18 06:11 Anion Gap 4 mmol/L (2-11) 01/04/18 06:11 BUN 16 mg/dL (6-24) 01/04/18 06:11 Creatinine 0.88 mg/dL (0.51-0.95) 01/04/18 06:11 Est GFR ( Amer) 81.2 (>60) 01/04/18 06:11 Est GFR (Non-Af Amer) 63.2 (>60) 01/04/18 06:11 BUN/Creatinine Ratio 18.2 (8-20) 01/04/18 06:11 Glucose 125 mg/dL (70-100) H 01/04/18 06:11 Calcium 8.4 mg/dL (8.6-10.3) L 01/04/18 06:11 General: Well appearing, NAD LLE: Dressing CDI without surrounding erythema. Thigh is soft. DF/PF intact. 2+ DP pulse, capillary refill less than two seconds distally. Sensation intact distally. BL LE: Calves supple and nontender without erythema, edema or palpable cords. Assessment: []POD 1 sp Left total hip arthroplasty Dr Resendez Plan: []WBAT PT/OT hip precautions lovenox, coumadin 6 mg today Aggressive use of bowel meds to prevent constipation, discussed with nursing
[2018-01-04] MEDS ORDERED: LR IV ONE (14:50)
[2018-01-04] MEDS ORDERED: Warfarin TAB(*) 6 MG PO SCH (17:00)
[2018-01-05] MEDS: oxyCODONE/Acetamin 5/325 MG* TAB PO PRN ×2 (00:02→06:29)
[2018-01-05 06:17] LABS: Hematocrit 27 % (35-47); Hemoglobin 9.3 g/dl (12.0-16.0); Mean Platelet Volume 7.9 um3 (7.4-10.4); Platelet Count 188 10^3/ul (150-450)
[2018-01-05 06:34] LABS: INR 1.1 (0.77-1.02)
[2018-01-05] MEDS: Docusate CAP* 100 MG PO SCH ×2 (08:37→20:46)
[2018-01-05] MEDS: oxyCODONE TAB* 5 MG TAB PO PRN (08:37)
[2018-01-05] MEDS: Magnesium Hydroxide LIQ* 30 ML UDC PO SCH ×2 (08:38→20:46)
[2018-01-05] MEDS ORDERED: Scopolamine 1.5 mg* PATCH ONE (09:36)
[2018-01-05] MEDS ORDERED: Metoclopramide IV* 5 MG/ML 2 ML VIAL IV PRN (09:49)
[2018-01-05] MEDS ORDERED: Metoclopramide IV* 5 MG/ML 2 ML VIAL IV ONE (10:00)
[2018-01-05] MEDS ORDERED: Metoclopramide IV* 5 MG/ML 2 ML VIAL ONE (10:10)
--- NOTE | 2018-01-05 11:47 | PN ---
Progress Note - Progress Note Date of Service: 01/05/18 SOAP: Subjective: []Patient seen OOB in chair. She felt well until participating with physical therapy when she vomit and felt dizzy. Denies chest pain, shortness of breath. Left hip pain is well controlled. Objective: [] Vital Signs Temp 98.5 F 01/05/18 11:14 Pulse 55 01/05/18 11:14 Resp 16 01/05/18 11:14 BP 95/40 01/05/18 11:37 Pulse Ox 97 01/05/18 11:14 Intake & Output 01/04/18 01/05/18 01/05/18 18:59 06:59 18:59 Intake Total 2013 1469 Output Total 950 2250 100 Balance 1064 -781 -100 Intake: IV Fluids 1724 1269 ABX - CLINDAMYCIN 50 LR 1724 1219 Oral 290 200 Output: Urine 300 2250 100 Emesis 650 Other: Estimated Void Medium Medium Large # Voids 1 1 Laboratory Last Values Hgb 9.3 g/dl (12.0-16.0) L 01/05/18 05:55 Hct 27 % (35-47) L 01/05/18 05:55 Plt Count 188 10^3/ul (150-450) 01/05/18 05:55 MPV 7.9 um3 (7.4-10.4) 01/05/18 05:55 INR (Anticoag Therapy) 1.10 (0.77-1.02) H 01/05/18 05:57 Sodium 132 mmol/L (139-145) L 01/04/18 06:11 Potassium 5.0 mmol/L (3.5-5.0) 01/04/18 06:11 Chloride 102 mmol/L (101-111) 01/04/18 06:11 Carbon Dioxide 26 mmol/L (22-32) 01/04/18 06:11 Anion Gap 4 mmol/L (2-11) 01/04/18 06:11 BUN 16 mg/dL (6-24) 01/04/18 06:11 Creatinine 0.88 mg/dL (0.51-0.95) 01/04/18 06:11 Est GFR ( Amer) 81.2 (>60) 01/04/18 06:11 Est GFR (Non-Af Amer) 63.2 (>60) 01/04/18 06:11 BUN/Creatinine Ratio 18.2 (8-20) 01/04/18 06:11 Glucose 125 mg/dL (70-100) H 01/04/18 06:11 Calcium 8.4 mg/dL (8.6-10.3) L 01/04/18 06:11 General: Well appearing, NAD LLE: Dressing changed by Dr Resendez this morning, remains CDI without surrounding erythema. Thigh is soft. DF/PF intact. 2+ DP pulse, capillary refill less than two seconds distally. Sensation intact distally. BL LE: Calves supple and nontender without erythema, edema or palpable cords. Assessment: []POD 2 sp Left total hip arthroplasty Dr Resendez Plan: []WBAT PT/OT hip precautions lovenox, coumadin 6 mg today Aggressive use of bowel meds to prevent constipation Reglan ordered for nausea after patient vomit PO zofran Soft BPs/ dizziness. LR restarted at 100 ml/hr. Encouraged PO intake, slow position changes
[2018-01-05] MEDS: Enoxaparin(*) 30 MG/0.3 ML SYR SUBCUT SCH (12:32)
--- NOTE | 2018-01-05 12:43 | OP ---
OPERATIVE REPORT: DATE OF OPERATION: 01/03/18 DATE OF : 45 SURGEON: Vivienne Resendez MD COMPRESSOR STATION ENGINEER: LISA Chappell Ms. did help throughout the procedure with preparation of the leg, wound retraction, manipul ation of the hip and wound closure. ANESTHESIOLOGIST: Dr. Bond. ANESTHESIA: Spinal. PRE-OP DIAGNOSIS: Severe end-stage degenerative osteoarthritis of the left hip joint. POST-OP DIAGNOSIS: Severe end-stage degenerative osteoarthritis of the left hip joint. OPERATIVE PROCEDURE: Left total hip arthroplasty. ESTIMATED BLOOD LOSS: 200 cc. COMPLICATIONS: None. SPECIMEN: Femoral head and acetabular reaming, sent to pathology. HARDWARE USED: This is uncemented [employer] total hip hardware. For the cup, a Trident 52E hemispheri faheem acetabular shell, a single 20-mm cancellous bone screw. For the liner, an MDM cementless liner 42 E. For the stem, an Accolade TMZF size 3 with a 132-degree neck. For the head, a 28 -4 Biolox delta ceramic V40 femoral head and for the insert, a oriental orthodox of ADM/MDM 28/48/42E. BRIEF HISTORY/INDICATIONS: Ms. Pinedo is a 72-year-old female with 6 months of increasingly se da left hip pain. She failed conservative treatment with antiinflammatories, pain medication, ambu latory assistive devices and physical therapy. Radiographs showed severe arthritis. Due to continue d pain and decreased quality of life, she elected to undergo left total hip arthroplasty. Informed c onsent was obtained from the patient. She understood the risks of surgery included, but were not carcamo ited to bleeding, infection, damage to nearby structures, continued pain, need for further surgery. I ntraoperative fracture, nerve palsy, hardware failure loosening, intraoperative fracture, dislocation , leg length discrepancy, stroke, heart attack, blood clot and . She wished to proceed. INTRAOPERATIVE FINDINGS: Intraoperatively, the patient is noted to have complete loss of cartilage a long the femoral head of the acetabulum. She had significant osteophyte formation in femoral head an d neck. The patient was noted to have osteopenia throughout the case. DESCRIPTION OF PROCEDURE: Ms. Pinedo was identified in the preanesthesia unit. The left lower extremity was marked as a correct operative side. Informed consent was signed and placed in the [facility] rt. The patient was taken to the operating room and placed under spinal anesthesia. A Steiner cathete r was placed. The patient was placed in the right lateral decubitus position on the peg board. All bony prominences were well padded. Left lower extremity was prepped and draped in the usual sterile fashion. Preop timeout was made to correctly identify the patient's side and site. Appropriate afshan operative antibiotics were given within 1 hour of incision. A 12-cm posterior hip incision was made with a 10-blade and carried down to the lateral fascial layer . New 10-blade was used to make a standard lateral fascial incision and lateral skin incision. Corinna nley retractor was placed. The piriformis and conjoint tendons were identified on the posterolateral femur. These were elevated with electrocautery and tagged with #5 Ethibond. Next, electrocautery w as used to make a standard posterolateral capsular flap and this was also tagged with #5 Ethibond. L vasu troch to center of the femoral head measured 55 mm. Oscillating saw was used to make the approp riate femoral neck cut. The femoral head was removed. The femur was carefully retracted anteriorly. After appropriate placement of retractors, the acetabulum was well visualized. Long-handled knife was used to sharply remove any remaining labrum from the acetabular rim. The acetabulum was sequentiall y reamed up to a size 51. Bleeding subchondral bone bed was obtained. A 51 trial had excellent fit. A Trident 52E cup was chosen as a final implant. This was impacted into the acetabulum without dif ficulty. The cup was stable with appropriate anteversion and abduction angle. A single 20 mm screw w as placed in the superoposterior quadrant for extra stability. A 42E MDM cementless liner was chosen as the current liner. This was impacted into the acetabulum without difficulty. Stability of the l iner was checked and rechecked and noted to be stable. A small amount of anterior osteophyte was rem clarence from superoanterior rim of the acetabulum. This was performed using a thin osteotome and rongeu r. Next, attention was turned to preparation of the proximal femur. A canal finder was used to enter th e proximal femur. The proximal femur was sequentially broached up to a size 3. Size 3 broach had ex cellent stability and appropriate anteversion. A 132 neck trial was chosen as well as a 28 +0 head tr ial. Lesser troch to center of the femoral head measured 60 mm. Therefore, -4 head trial was chosen . Lesser troch to center of the femoral head measured 56 mm. The appropriate inserts were placed an d the hip was reduced. The hip was taken through a range of motions. The hip was stable in all posi tions. Leg lengths were appropriate and soft tissue tension was appropriate. The hip was carefully dislocated. All trials were removed. Final implant chosen was an Accolade TMZF size 3 with a 132-de gree neck. This was impacted into the femoral canal without difficulty. This stem was stable with ap propriate anteversion. A 28 -4 ceramic Biolox delta femoral head was chosen. This was placed with a 28/48/42E MDM inserts. This was impacted onto the femoral neck. The hip was reduced and taken thro ugh a range of motion. The hip was stable in all positions. Leg lengths and soft tissue tension wer e deemed to be appropriate. The hip was copiously irrigated with sterile saline. Previously tagged capsule and tendons were reap proximated to the posterolateral femur using trochanteric drill holes. The lateral fascial layer was closed using interrupted #1 Vicryls. The rest of the incision was closed in a layered fashion using 0 and 2-0 Vicryls. Skin was closed using running 3-0 Monocryl with Dermabond. Sterile Adaptic, 4x4 s and paper tape were used to cover the incision. The patient's anesthesia was reversed without difficulty. She was taken to the PACU in stable condit ion. Intended weightbearing will be weightbearing as tolerated. Intended DVT prophylaxis will be Co umadin with a Lovenox bridge. [id number]/[facility] #: [id number]
[2018-01-05] MEDS: Acetaminophen TAB* 325 MG PO PRN ×2 (13:39→17:51)
[2018-01-05] MEDS ORDERED: Warfarin TAB(*) 6 MG PO ONE (18:00)
[2018-01-06] MEDS: Acetaminophen TAB* 325 MG PO PRN ×3 (00:08→12:56)
[2018-01-06] MEDS ORDERED: Scopolamine PATCH Remove* 1 NOTE MISC PATCH OFF ONE (05:56)
[2018-01-06 06:22] LABS: Hematocrit 25 % (35-47); Hemoglobin 8.9 g/dl (12.0-16.0); Mean Platelet Volume 7.9 um3 (7.4-10.4); Platelet Count 192 10^3/ul (150-450)
[2018-01-06] MEDS: Docusate CAP* 100 MG PO SCH (07:51)
[2018-01-06] MEDS: Magnesium Hydroxide LIQ* 30 ML UDC PO SCH (07:51)
[2018-01-06] MEDS: Enoxaparin(*) 30 MG/0.3 ML SYR SUBCUT SCH (12:12)
[2018-01-06 12:14] VITALS: BP 108/53
--- NOTE | 2018-01-06 12:14 | PN ---
Progress Note - Progress Note Date of Service: 01/06/18 SOAP: Subjective: 72 y/o female s/p L [facility] 01/[address] Resendez. Patient reports feeling well, + 3 BM this AM. Eager for D/C to home. Pain controlled with Tylenol currently. VSS , afebrile overnight. Objective: General- Well appearing, NAD, AO resting in chair comfortably. MSK- LLE- DF/PF = b/l, PT 2+, negative homans sign, dressing removed, incision c/d/i, glue intact, no drainage noted, dressing left off due to patients discomfort with tape. Vital Signs Temp 98.6 F 01/06/18 08:04 Pulse 63 01/06/18 08:04 Resp 16 01/06/18 08:04 BP 111/50 01/06/18 08:04 Pulse Ox 97 01/06/18 08:04 Intake & Output 01/05/18 01/06/18 01/06/18 18:59 06:59 18:59 Intake Total 643 1100 1707 Output Total 700 500 600 Balance -57 600 1107 Intake: IV Fluids 643 1467 LR 643 1467 Oral 1100 240 Output: Urine 700 500 600 Other: Estimated Void Large Date of Last Bowel 01/06/18 Movement # Bowel Movements 1 Estimated Stool Amount Large # Voids 1 1 Assessment: Stable 72 y/o female s/p L [facility] 01/[address] Resendze. Plan: - DVT prophylaxis- lovenox, coumadin - INR 1.00. - Continue PT/ OT as shown, home PT - Follow up with Dr. Resendez within 10-14 days - H&H - stable - post-op IV ABX - COMpleted. - D/C to home today. Acetaminophen (Tylenol Tab*) 650 mg PO Q4H PRN PRN Reason: PAIN OR TEMPERATURE Last Admin: 01/06/18 05:33 Dose: 650 mg Bisacodyl (Dulcolax Supp*) 10 mg IA DAILY PRN PRN Reason: constipation Last Admin: 01/06/18 07:51 Dose: 10 mg Cyclobenzaprine HCl (Flexeril Tab*) 10 mg PO TID PRN PRN Reason: SPASMS Diphenhydramine HCl (Benadryl Iv*) 12.5 mg IV Q6H PRN PRN Reason: PRURITIS Docusate Sodium (Colace Cap*) 100 mg PO BID [facility] Last Admin: 01/06/18 07:51 Dose: 100 mg Enoxaparin Sodium (Lovenox(*)) 30 mg SUBCUT Q24H [facility] Last Admin: 01/06/18 12:12 Dose: 30 mg Hydromorphone HCl (Dilaudid Inj*) 2 mg IV SLOW PU Q4H PRN PRN Reason: PAIN Last Admin: 01/03/18 23:12 Dose: 2 mg Lactated Ringer's (Lactated Ringers 1000 Ml Bag*) 1,000 mls @ 100 mls/hr IV PER RATE [facility] Last Admin: 01/06/18 03:07 Dose: 100 mls/hr Lactulose (Lactulose*) 30 ml PO Q6H PRN PRN Reason: constipation Last Admin: 01/05/18 17:51 Dose: 30 ml Magnesium Hydroxide (Milk Of Magnesia Liq*) 30 ml PO BID [facility] Last Admin: 01/06/18 07:51 Dose: 30 ml Magnesium Hydroxide (Milk Of Magnesia Liq*) 30 ml PO Q6H PRN PRN Reason: constipation Metoclopramide HCl (Reglan Iv*) 10 mg IV Q6H PRN PRN Reason: NAUSEA/VOMITING Ondansetron HCl (Zofran Inj*) 4 mg IV Q6H PRN PRN Reason: nausea Last Admin: 01/04/18 16:16 Dose: 4 mg Ondansetron HCl (Zofran Tab*) 4 mg PO Q6H PRN PRN Reason: NAUSEA Last Admin: 01/05/18 09:07 Dose: 4 mg Oxycodone HCl (Roxycodone Tab*) 10 mg PO Q4H PRN PRN Reason: SEVERE PAIN Last Admin: 01/05/18 08:37 Dose: 10 mg Oxycodone/Acetaminophen (Percocet 5/325 Tab*) 2 tab PO Q4H PRN PRN Reason: PAIN Last Admin: 01/05/18 06:29 Dose: 2 tab Oxycodone/Acetaminophen (Percocet 5/325 Tab*) 1 tab PO Q4H PRN PRN Reason: PAIN Pharmacy Profile Note (Coumadin Daily Reminder*) 1 note FOLLOW UP 1700 [facility] Last Admin: 01/05/18 17:53 Dose: 1 note Polyethylene Glycol/Electrolytes (Miralax*) 17 gm PO DAILY PRN PRN Reason: Constipation Scopolamine (Transderm-Scop 1.5 Mg Patch*) 1 patch TRANSDERM Q72H PRN PRN Reason: Nausea/Vomiting Tramadol HCl (Ultram*) 50 mg PO Q6H PRN PRN Reason: PAIN Last Admin: 01/04/18 18:24 Dose: 50 mg Laboratory Results - last 24 hr 01/06/18 01/06/18 06:02 06:05 Hgb 8.9 L Hct 25 L Plt Count 192 MPV 7.9 INR (Anticoag Therapy) 1.00
--- NOTE | 2018-01-17 21:38 | DS ---
DISCHARGE SUMMARY: DATE OF SURGERY/ADMISSION: 01/04/18 DATE OF DISCHARGE: 01/06/18 ATTENDING SURGEON: Vivienne Resendez MD * (DICTATED BY LISA MEZA) CHIEF COMPLAINT: 1. Left hip pain. 2. Elevated cholesterol. 3. Depression. 4. History of melanoma. DISCHARGE DIAGNOSES: 1. Status post left total hip arthroplasty. 2. Elevated cholesterol. 3. Depression. 4. History of melanoma. PROCEDURE: Left total hip arthroplasty. CONSULTATIONS: 1. Physical Therapy. 2. Occupational Therapy. BRIEF HISTORY: Ms. Pinedo is a 72-year-old female with left hip pain secondary to advanced arthritis, who has failed conservative treatment and elected to undergo a left total hip arthroplasty with Dr. Vivienne Resendez. HOSPITAL COURSE: The patient was admitted to [facility] on 01/03/18 where he underwent a left total hip arthroplasty, which is uncomplicated with an estimated blood loss of 200 cc. The patient recovered on the surgical short- stay unit. The Steiner was removed. On postoperative day 2, she was voiding on her own without difficulty. She advanced to regular diet and her pain was controlled with p.o. pain medications. Her labs and vital signs remained stable. She was able to bear weight as tolerated on the left lower extremity and advanced appropriately with physical therapy and occupational therapy. Her DVT prophylaxis was managed with Coumadin and Lovenox until she reached a therapeutic INR by postoperative day 3. The patient was orthopedically and medically stable for discharge to go home with home services. PHYSICAL EXAMINATION: General: Well appearing, in no acute distress. Alert and oriented. Resting in chair comfortably. Vital Signs: 98.6 temperature, pulse 65, respirations 16, blood pressure 111/50, pulse ox 97% on room air. Musculoskeletal: Left lower extremity with positive dorsiflexion and plantarflexion equal bilaterally with posterior tibial pulse 2+. Negative Homans' sign. Surgical dressing was removed. The incision was clean, dry and intact. No drainage was noted. Dressing was left off due to the patient's discomfort with the tape. Sensation was intact distal to incision. LABORATORY DATA: On date of discharge include an H and H of 8.9 and 25 with an INR of 1.0. DISCHARGE MEDICATIONS: 1. Tylenol 650 mg p.o. q.4 to 6 hours as needed for pain; the patient is advised not to take more than 4000 mg a day. 2. Allergy drops 3 drops sublingually p.o. q.p.m. 3. Dulcolax suppository 10 mg per rectum daily p.r.n. for constipation. 4. Claritin 10 mg p.o. q.a.m. 5. Vitamin D 3 5000 units p.o. daily. 6. Colace 100 mg p.o. b.i.d. 7. Percocet 5/325 one to two tablets every 4 to 6 hours as needed for pain. 8. Zoloft 100 mg p.o. q.a.m. 9. Ultram 50 mg p.o. q. 4 to 6 hours for pain, not to be taken with Percocet. 10. Coumadin 2 mg tablet 1 to 3 tablets per physician's instructions daily at 5 p.m. CONDITION ON DISCHARGE: Stable. DISCHARGE INSTRUCTIONS: The patient is a 72-year-old female status post left total hip arthroplasty which was uncomplicated. She is orthopedically and medically stable for discharge to home. She is weightbearing as tolerated. The hip precautions were reviewed with the patient. She is having Coumadin per DVT prophylaxis and will take 8 mg on 01/06/18; 8 mg on 01/07/18; 6 mg on 01/08 with a repeat INR check on 01/09/18. She will go home with the visiting home nurse services and physical therapy services. Her pain is controlled with p.o. Percocet and she will take Colace as needed for constipation. She will follow up with Dr. Resendez in approximately 10 to 14 days for incision check and suture removal. She is advised to go immediately to the ER should she develop any chest pain or shortness of breath and to call the office with increased redness , swelling or pain. LISA MEZA [id number]/[facility] #: [id number] MTDD
== END 2018-01-06 13:10 | disposition home health service (06) | DRG 470 ==
LOC: AA 13:25 → SSU 19:46
PROVIDERS: ADMIT Orthopaedic Surgery Adult Reconstructive Orthopaedic Surgery; ATTEND Orthopaedic Surgery Adult Reconstructive Orthopaedic Surgery
PROC: 0SR904A Replacement of Right Hip Joint with Ceramic on Polyethylene Synthetic Substitute, Uncemented, Open Approach (ICD-10-PCS; principal; 2018-01-03 16:00)
DX: M16.12 Unilateral primary osteoarthritis, left hip (principal); F33.9 Major depressive disorder, recurrent, unspecified; E78.00 Pure hypercholesterolemia, unspecified; Z96.641 Presence of right artificial hip joint; E55.9 Vitamin D deficiency, unspecified; R73.01 Impaired fasting glucose; R42 Dizziness and giddiness; R11.2 Nausea with vomiting, unspecified; M25.752 Osteophyte, left hip; Z85.820 Personal history of malignant melanoma of skin; Z90.710 Acquired absence of both cervix and uterus; Z88.0 Allergy status to penicillin; Z80.3 Family history of malignant neoplasm of breast; Z82.49 Family history of ischemic heart disease and other diseases of the circulatory system; Z72.89 Other problems related to lifestyle; Z87.440 Personal history of urinary (tract) infections; Z81.8 Family history of other mental and behavioral disorders; Z81.1 Family history of alcohol abuse and dependence; Z82.61 Family history of arthritis; Z87.891 Personal history of nicotine dependence
CPT/HCPCS: 36415; 72170; 80048; 85014; 85018; 85049; 85610; 88304; 88311; A9270-GY; C1713; C1776; G8978-GP-CJ; G8979-GP-CH; G8987-GO-CI; G8987-GO-CJ; G8988-GO-CI; G8989-GO-CI; J1100; J1170; J1650; J2250; J2405; J2704; J2765; J2795; J3010